=== PATIENT | female | born 1940 | race Caucasian/White ===

== ENCOUNTER → 2017-09-06 07:41 | Outpatient (CLI) | payer MEDICARE, OTHER ==
[~2017-09-06 07:41] MED LIST: JANUVIA50 MG PO; PAXIL40 MG PO; SYNTHROID50 MCG PO; TRICOR145 MG PO; TRULICITY0.75 MG/0. SC; ULTRAM50 MG PO
[2017-09-06 09:20] LABS: ALBUMIN 3.8 g/dL (3.4-5.0); ANION GAP 11.8 mmol/L (8-16); BILIRUBIN - TOTAL 0.5 mg/dL (0.2-1.3); CALCIUM 9.9 mg/dL (8.5-10.1); CREATININE - SERUM 1.8 mg/dL (0.6-1.3); POTASSIUM - SERUM 3.8 mmol/L (3.5-5.1); PROTEIN - SERUM 7.5 g/dL (6.4-8.2)
[2017-10-22 07:00] VITALS: BMI 25.8
== END | disposition home or self-care (01) ==
LOC: D.US 07:41
PROVIDERS: Family Medicine
DX: K81.9 Cholecystitis, unspecified (principal)

== ENCOUNTER 2017-10-22 05:18 | Day surgery (SDC) | payer MEDICARE, OTHER ==
[2017-10-21 11:30] LABS: BASOPHILS 0.4 % (0-2); EOSINOPHILS 2.9 % (0-7); HEMATOCRIT 39.6 % (36.0-48.0); HEMOGLOBIN 13.3 g/dL (12-16); IMMATURE GRANULOCYTES 0.2 % (0-5); LYMPHOCYTES 27.3 % (15-50); MCH 30.3 pg (26.0-34.0); MCHC 33.6 g/dL (31.0-37.0); MCV 90.2 fL (80.0-100.0); MEAN PLATELET VOLUME 9.9 fL (7.4-10.4); MONOCYTES 5.8 % (2-11); NEUTROPHILS 63.4 % (40-80); PLATELET COUNT 354 10x3/uL (130-400); RBC 4.39 10x6/uL (4.00-5.40); RDW 13.5 % (11.5-14.5); WBC 8.2 10x3/uL (4.8-10.8)
[2017-10-21 11:44] LABS: APTT 26.4 SECONDS (22.8-39.4); INR 0.97 (0.85-1.17); PROTIME 12.5 SECONDS (11.6-15.0)
[2017-10-21 11:47] LABS: ANION GAP 12.6 mmol/L (8-16); CALCIUM 9.2 mg/dL (8.5-10.1); CARBON DIOXIDE 26.3 mmol/L (21.0-32.0); CREATININE - SERUM 1.7 mg/dL (0.6-1.3); POTASSIUM - SERUM 3.9 mmol/L (3.5-5.1)
[~2017-10-22] VITALS: Ht 157.5 cm; Wt 64.0 kg
[~2017-10-22 05:18] MED LIST changes: -ULTRAM50 MG PO
[2017-10-22 07:00] VITALS: BP 127/62; Ht 157.5 cm; Wt 64.0 kg
[2017-10-22] MEDS ORDERED: ULTRAM50 MG PO (09:48)
--- NOTE | 2017-10-22 11:14 | NUR ---
1100 SERVED FULL LIQUID DIET. Thor VASQUES R.N.
--- NOTE | 2017-10-29 12:19 | OP ---
PATIENT NAME: JOSE A QUINTEROS MEDICAL RECORD: [id number] :44 LOCATION:D.OPS ADMISSION DATE: SURGEON: MAO SANTACRUZ MD DATE OF OPERATION: 10/22/2017 DATE OF OPERATION: 10/22/2017 PREOPERATIVE DIAGNOSES: 1. Gallstones. 2. Chronic kidney disease. 3. Diabetes mellitus. 4. Hyperlipidemia. POSTOPERATIVE DIAGNOSES: 1. Gallstones. 2. Chronic kidney disease. 3. Diabetes mellitus. 4. Hyperlipidemia. PROCEDURE: Laparoscopic cholecystectomy. SURGEON: Mao Santacruz MD REPORT OF PROCEDURE: The patient's abdomen was prepped and draped in sterile fashion. A cutdown was performed on the superior aspect of the umbilicus, 0 Vicryls were placed in the fascia bilaterally and the fascia was incised with 15-blade. I then bluntly entered the peritoneal cavity and placed a 12-mm Daryl port. Under direct visualization, a 5 mm trocar was placed in the epigastrium and two more 5-mm trocars were placed in the right subcostal region. The gallbladder was elevated and there were no sign of inflammatory changes. The cystic artery and duct were dissected free and these were clipped proximally and distally and ligated in standard fashion. The gallbladder was then taken off the liver bed using electrocautery and placed in the right upper quadrant. Any bleeding from the liver bed was then treated with electrocautery. At this point, the ports and insufflation were then removed and the gallbladder was taken out through the umbilicus. The umbilical fascia was closed with interrupted 0 Vicryls times 3. The wounds were irrigated out with normal saline and infused with 10 mL of 0.25% Marcaine with epinephrine. The skin incisions were all closed with subcutaneous 5-0 Monocryl and dressed appropriately. COMPLICATIONS: None. CONDITION: Stable. ANESTHESIA: General endotracheal and local. BLOOD LOSS: Minimal. TRANSINT:[id number] Voice Confirmation ID: [id number] DOCUMENT ID: [id number] OPERATIVE REPORT [id number] NELIJOSE A MAO CABRERA MD at 1219 CC: DUANE RIOS MD [id number] DICTATION DATE: 10/22/17 0951 [employer] REPAIRER: 10/22/17 1108 [facility] 10/22/17 [facility] [address] [place] [address]
== END 2017-10-22 12:20 | disposition home or self-care (01) ==
LOC: D.OPS 05:18 → D.PAN 08:20 → D.OPS 08:20
PROVIDERS: Anesthesiology
DX: K80.80 Other cholelithiasis without obstruction (principal); E11.22 Type 2 diabetes mellitus with diabetic chronic kidney disease; N18.9 Chronic kidney disease, unspecified; F17.200 Nicotine dependence, unspecified, uncomplicated; E03.9 Hypothyroidism, unspecified; E78.5 Hyperlipidemia, unspecified; J44.9 Chronic obstructive pulmonary disease, unspecified; Z01.812 Encounter for preprocedural laboratory examination

== ENCOUNTER 2018-03-06 19:21 | Emergency (ER) | payer MEDICARE, OTHER ==
[2017-10-22 07:00] VITALS: BMI 25.8
[~2018-03-06 19:21] MED LIST changes: +ULTRAM50 MG PO
== END 2018-03-06 21:36 | disposition home or self-care (01) ==
LOC: D.ER 19:21
DX: S63.502A Unspecified sprain of left wrist, initial encounter (principal); W01.0XXA Fall on same level from slipping, tripping and stumbling without subsequent striking against object, initial encounter; Y93.89 Activity, other specified; Y92.017 Garden or yard in single-family (private) house as the place of occurrence of the external cause; S61.411A Laceration without foreign body of right hand, initial encounter; E11.9 Type 2 diabetes mellitus without complications

== ENCOUNTER → 2018-05-28 12:48 | Outpatient (CLI) | payer MEDICARE, OTHER ==
[2017-10-22 07:00] VITALS: BMI 25.8
== END | disposition home or self-care (01) ==
LOC: D.CT 12:48
DX: R91.1 Solitary pulmonary nodule (principal)

== ENCOUNTER 2020-03-25 17:28 | Inpatient (IN) | payer MEDICARE, OTHER ==
[~2020-03-25] VITALS: Ht 157.5 cm; Wt 63.6 kg
--- NOTE | ~2020-03-25 | OP ---
PATIENT NAME: JOSE A QUINTEROS MEDICAL RECORD: [id number] :44 LOCATION:D.M3 D.1210 ADMISSION DATE:03/25/20 SURGEON: REGGIE LEWIS MD DATE OF OPERATION: 03/28/2020 PREOPERATIVE DIAGNOSIS: Left intertrochanteric hip fracture. POSTOPERATIVE DIAGNOSIS: Left intertrochanteric hip fracture. PROCEDURE: Cephalomedullary fixation (gamma nail of the left intertrochanteric hip fracture). SURGEON: Reggie Lewis MD ANESTHESIA: MELLISSA Antonio INTRAOPERATIVE COMPLICATIONS: None. SUMMARY OF PATHOLOGIC FINDINGS: The patient had a very minimally or nondisplaced intertrochanteric hip fracture of the left as seen under fluoroscopy. OPERATIVE SUMMARY IN DETAIL: After obtaining the appropriate preoperative orthopedic surgery consent as well as anesthetic consultation, evaluation and clearance, the patient was brought to the operating room and placed on the operating table in a supine position. After adequate general laryngeal mask airway was administered, the patient was placed on the fracture table, right leg was placed in the well leg hadley, left leg was placed in the traction boot. Under fluoroscopic guidance on AP and lateral planes, the patient was shown to have an anatomic realignment. Left hip was then prepped and draped in routine sterile fashion. Incision was made over the tip of the greater trochanter. Awl was then used to introduce a ball tip guidewire over which proximal reaming was performed. This was then followed by insertion of the gamma nail to the appropriate depth as seen on AP and lateral views. A guidewire was also placed in the appropriate position of the femoral head as seen on AP and lateral views. Appropriate reaming was then followed by insertion of the compression screw to the appropriate depth. A derotational screw was then placed and it was checked to make sure that compression was possible and rotation was not. Compression was then placed across the fracture. This was followed by placement of distal interlocking screw again under fluoroscopic visualization. Having completed this, final radiographs were taken and submitted for radiologist review. Wounds were irrigated and closed by Keagan Hernandez and closed with #1 Vicryl, 2-0 Vicryl and skin kemi. Sterile dressings were applied. The patient was then awakened, taken to recovery room in stable condition. All final needle and sponge counts were correct. TRANSINT:[id number] Voice Confirmation ID: [id number] DOCUMENT ID: [id number] OPERATIVE REPORT [id number] JOSE A QUINTEROS MD, REGGIE AGUILAR CC: [id number] DICTATION DATE: 03/31/20837 CONSULTING MANAGER: 03/31/20 1506 DIS IN 03/31/20 [facility] [address] [place] [id number]
--- NOTE | 2020-03-25 19:05 | NUR ---
REPORT TO CADE CHOWDHURY
[2020-03-25 20:01] LABS: BASOPHILS 0.2 % (0-2); EOSINOPHILS 1.6 % (0-7); HEMATOCRIT 44.3 % (36.0-48.0); HEMOGLOBIN 14.2 g/dL (12-16); IMMATURE GRANULOCYTES 0.5 % (0-5); LYMPHOCYTES 11.3 % (15-50); MCH 30.4 pg (26.0-34.0); MCHC 32.1 g/dL (31.0-37.0); MCV 94.9 fL (80.0-100.0); MEAN PLATELET VOLUME 10.5 fL (7.4-10.4); MONOCYTES 4.8 % (2-11); NEUTROPHILS 81.6 % (40-80); PLATELET COUNT 309 10x3/uL (130-400); RBC 4.67 10x6/uL (4.00-5.40); RDW 13.6 % (11.5-14.5)
[2020-03-25 20:06] LABS: ANION GAP 12.6 mmol/L (8-16); CALCIUM 9.4 mg/dL (8.5-10.1); CARBON DIOXIDE 28.1 mmol/L (21.0-32.0); POTASSIUM - SERUM 3.7 mmol/L (3.5-5.1)
[2020-03-25 20:12] LABS: ALBUMIN 4.2 g/dL (3.4-5.0); BILIRUBIN - TOTAL 0.29 mg/dL (0.2-1.3); PROTEIN - SERUM 7.4 g/dL (6.4-8.2)
--- NOTE | 2020-03-25 20:15 | NUR ---
URINE SENT TO LAB AT THIS TIME.
[2020-03-25 20:26] LABS: APTT 25.2 SECONDS (22.8-39.4); INR 0.98 (0.85-1.17)
[2020-03-25 20:39] LABS: BILIRUBIN NEGATIVE (NEGATIVE); GLUCOSE 50 mg/dL (NEGATIVE); KETONE NEGATIVE (NEGATIVE); NITRITE NEGATIVE (NEGATIVE); SPECIFIC GRAVITY 1.025 (1.005-1.020); UROBILINOGEN NORMAL (NORMAL)
[2020-03-25 21:26] VITALS: BP 109/48
--- NOTE | 2020-03-25 21:26 | NUR ---
RECEIVED PT TO FLOOR FROM ER VIA STRETCHER. PT ALERT & ORIENTED. RATES HIP PAIN 4/10 LYING STILL, PAIN INCREASES WITH MOVEMENT. VITALS SIGNS STABLE. ABRASIONS ON LEFT ELBOW AND LEFT KNEE. CLEANED WITH SALINE AND APPLIED BANDAID TO EACH. EXPLAINED BENEFIT OF SCD'S AND PUT THEM ON. PROVIDED INCENTIVE SPIROMETER AND INSTRUCTED ON USE. IV FLUIDS RESUMED. COMPLETE ASSESSMENT PER FLOW-SHEET. REVIEWED HOME MEDS AND HISTORY. NO OTHER NEEDS. WILL REASSESS AND CONTINUE TO MONITOR. BED LOW. CALL LIGHT IN REACH.
[2020-03-25] MEDS ORDERED: VITAMIN D1000 UNI1 PO (22:02)
[2020-03-26] VITALS (7 sets, daily range): BP systolic 111–133; BP diastolic 40–63; Ht 157.5 cm; Wt 63.6 kg
--- NOTE | 2020-03-26 | NUR ---
PT VOIDED 275 MLS ON BEDPAN. PT ALSO VOIDED UNKNOWN AMOUNT IN ER AND HAD IN/OUT CATH FOR URINE SPECIMEN. PT C/O LEFT HIP PAIN 03/27. GAVE MORPHINE 2MG AND ZOFRAN 4MG IV PUSH. VITALS SIGNS STABLE. PERFORMED EKG AND PUT ON CHART. LEFT AC IV KEEP BEEPING "OCCLUDED". SITED 22G IV TO LEFT FOREARM 1ST ATTEMPT. LEFT 20G IV IN AC AND SALINE LOCKED. REMINDED PT OF MIDNIGHT NPO STATUS. NO OTHER NEEDS. WILL REASSESS AND CONTINUE TO MONITOR.
--- NOTE | 2020-03-26 04:00 | NUR ---
PT VOIED 200 CC'S IN BEDPAN. C/O PAIN 05/27. GAVE MORPHINE 2MG IV PUSH. PUT PT ON 2L/NC TO KEEP SATS ABOVE 92%. HELPED PT TO REPOSITION FOR COMFORT. NO OTHER NEEDS. WILL CONTINUE TO MONITOR.
[2020-03-26 06:18] LABS: HEMATOCRIT 36.7 % (36.0-48.0); LYMPHOCYTES 29.5 % (15-50); MCH 30.3 pg (26.0-34.0); MCHC 32.7 g/dL (31.0-37.0); MCV 92.7 fL (80.0-100.0); MEAN PLATELET VOLUME 10.5 fL (7.4-10.4); NEUTROPHILS 64.6 % (40-80); PLATELET COUNT 254 10x3/uL (130-400); RBC 3.96 10x6/uL (4.00-5.40); RDW 13.2 % (11.5-14.5); WBC 7.9 10x3/uL (4.8-10.8)
[2020-03-26 06:20] LABS: ANION GAP 13.8 mmol/L (8-16); CALCIUM 8.3 mg/dL (8.5-10.1); CARBON DIOXIDE 24.1 mmol/L (21.0-32.0); PHOSPHOROUS 3.8 mg/dL (2.5-4.9); POTASSIUM - SERUM 3.9 mmol/L (3.5-5.1)
--- NOTE | 2020-03-26 08:27 | NUR ---
PT ALERT X 4. BREATH SOUNDS CLEAR BILAT, 2L O2 PER NC. IV TO LEFT AC, SALINE LOCKED. IV TO LEFT FOREARM, PATENT, DRESSING CDI. DRESSING TO LEFT ELBOW AND LEFT KNEE CDI. PT REPORTING PAIN OF 5/10, WILL CONTINUE TO MONITOR. SCD'S IN USE. BED LOW, CALL LIGHT IN REACH. NO OTHER NEEDS AT THIS TIME.
--- NOTE | 2020-03-26 19:26 | NUR ---
PATIENT RESTING IN BED WITH NO S/S OF DISTRESS. BROUGHT PATIENT COFFEE PER HER REQUEST. VSS. PATIENT DENIES OTHER NEEDS AT THIS TIME. BED IN LOWEST POSITION AND CALL LIGHT WITHIN REACH. ENCOURAGED THE PATIENT TO CALL IF SHE HAS NEEDS. WILL CONTINUE TO MONITOR.
--- NOTE | 2020-03-26 22:58 | NUR ---
ASSISTED PATIENT ON AND OFF BEDPAN TO VOID. ALSO ASSISTED PATIENT REPOSITIONING IN BED FOR COMFORT. PATIENT DENIES OTHER NEEDS AT THIS TIME.
[2020-03-27 04:33] VITALS: BP 130/44
[2020-03-27 07:09] LABS: HEMATOCRIT 35.3 % (36.0-48.0); HEMOGLOBIN 11.4 g/dL (12-16); LYMPHOCYTES 30.9 % (15-50); MCH 30.1 pg (26.0-34.0); MCHC 32.3 g/dL (31.0-37.0); MCV 93.1 fL (80.0-100.0); MEAN PLATELET VOLUME 9.9 fL (7.4-10.4); NEUTROPHILS 62.1 % (40-80); PLATELET COUNT 208 10x3/uL (130-400); RBC 3.79 10x6/uL (4.00-5.40); RDW 12.5 % (11.5-14.5); WBC 6.7 10x3/uL (4.8-10.8)
[2020-03-27 07:46] LABS: ANION GAP 12.4 mmol/L (8-16); CALCIUM 8.1 mg/dL (8.5-10.1); CARBON DIOXIDE 24.2 mmol/L (21.0-32.0); MAGNESIUM - SERUM 1.8 mg/dL (1.8-2.4); PHOSPHOROUS 3.4 mg/dL (2.5-4.9); POTASSIUM - SERUM 3.6 mmol/L (3.5-5.1)
[2020-03-27 09:13] VITALS: BP 138/43
[2020-03-27 12:23] VITALS: BP 126/39
[2020-03-27 17:55] VITALS: BP 131/44
--- NOTE | 2020-03-27 19:30 | NUR ---
LUIS ANTONIO RN ASSISTED PATIENT ON AND OFF BEDPAN. PATIENT DENIES OTHER NEEDS AT THIS TIME. VSS. BED IN LOWEST POSITION AND CALL LIGHT WITHIN REACH. ENCOURAGED THE PATIENT TO CALL IF SHE HAS NEEDS. WILL CONTINUE TO MONITOR.
[2020-03-27 19:34] VITALS: BP 150/51
--- NOTE | 2020-03-27 19:53 | NUR ---
CONSENTS SIGNED AND IN CHART
--- NOTE | 2020-03-27 20:47 | NUR ---
ASSISTED PATIENT ON AND OFF BEDPAN. PATIENT VOIDED.
--- NOTE | 2020-03-27 22:30 | NUR ---
COMPLETED CHG BATH
[2020-03-27 23:38] VITALS: BP 112/63
[2020-03-28] VITALS (7 sets, daily range): BP systolic 121–150; BP diastolic 46–92
--- NOTE | 2020-03-28 02:24 | NUR ---
ASSISTED PATIENT ON AND OFF BEDPAN. PATIENT DENIES OTHER NEEDS AT THIS TIME. BED IN LOWEST POSITION AND CALL LIGHT WITHIN REACH. ENCOURAGED THE PATIENT TO CALL IF SHE HAS NEEDS. WILL CONTINUE TO MONITOR.
[2020-03-28 06:30] LABS: ANION GAP 11.6 mmol/L (8-16); CARBON DIOXIDE 24.2 mmol/L (21.0-32.0); CREATININE - SERUM 1.6 mg/dL (0.6-1.3); MAGNESIUM - SERUM 1.8 mg/dL (1.8-2.4); POTASSIUM - SERUM 3.8 mmol/L (3.5-5.1)
[2020-03-28 06:31] LABS: PHOSPHOROUS 2.5 mg/dL (2.5-4.9)
[2020-03-28 07:12] LABS: HEMATOCRIT 32.1 % (36.0-48.0); HEMOGLOBIN 10.5 g/dL (12-16); LYMPHOCYTES 25.6 % (15-50); MCH 29.8 pg (26.0-34.0); MCHC 32.7 g/dL (31.0-37.0); MCV 91.2 fL (80.0-100.0); MEAN PLATELET VOLUME 10.7 fL (7.4-10.4); NEUTROPHILS 65.8 % (40-80); PLATELET COUNT 208 10x3/uL (130-400); RBC 3.52 10x6/uL (4.00-5.40); RDW 12.3 % (11.5-14.5); WBC 6.8 10x3/uL (4.8-10.8)
--- NOTE | 2020-03-28 07:34 | NUR ---
AWAKE AND ALERT. ORIENTED X3. NO C/O AT THIS TIME. LUNGS ARE CLEAR BUT DIMINISHED THROUGHOUT WITH FAINT CRACKLES NOTED TO RIGHT LOWER LOBE, NO COUGH NOTED. SKIN IS INTACT WITHOUT REDNESS EXCEPT ABRASION TO LEFT KNEE AND ELBOW. WILL MONITOR. IV TO LEFT WRIST IS PATENT WITHOUT REDNESS AT INSERTION SITE AND SL TO RIGHT FA WITHOUT REDNESS. DENIES NEEDS.
--- NOTE | 2020-03-28 08:01 | NUR ---
USED BED SALDANA. VOIDED 100CC CLEAR YELLOW URINE. RICHARD CARE PER STAFF.
--- NOTE | 2020-03-28 08:30 | NUR ---
REQUESTED AND GIVEN 2MG MORPHINE SLOW IVP FOR C/O LEFT HIP PAIN LEVEL 6. WILL MONITOR.
--- NOTE | 2020-03-28 09:27 | NUR ---
PUREWICK PLACED. PATIENT INSTRUCTED IN USE OF SAME. ALL QUESTIONS ANSWERED.
--- NOTE | 2020-03-28 11:17 | NUR ---
OFF UNIT VIA BED TO SURGERY.
--- NOTE | 2020-03-28 11:53 | MORECARE ---
CASE MANAGEMENT DISCHARGE SUMMARY PATIENT: JOSE A QUINTEROS UNIT: [id number] ADM DATE: 03/25/20 AGE: 79 : 42 SEX: F ROOM/BED: D.1210 AUTHOR: LATASHA WHIPPLE PHYSICIAN: REFERRING PHYSICIAN: LASHAWN FITZGERALD MD DATE OF SERVICE: 03/28/20 Discharge Plan Patient Name: JOSE A QUINTEROS Facility: [facility]:[place] : 1940 Planned Disposition: Anticipated Discharge Date: Discharge Date: Expected LOS: Initial Reviewer: [email or web address] Initial Review Date: 03/25/2020 Generated: 03/28/20 12:53 pm Patient Name: JOSE A QUINTEROS Page [phone] at 1153 All edits/amendments must be made on the electronic document DICTATION DATE: 03/28/20 1153 BOOK SALESMAN: THERON 03/28/20 1153 RPT#: [id number] DC DATE: STATUS: ADM IN [facility] [address] [place] [address] END OF REPORT
--- NOTE | 2020-03-28 12:02 | MORECARE ---
CASE MANAGEMENT DISCHARGE SUMMARY PATIENT: JOSE A QUINTEROS UNIT: [id number] ADM DATE: 03/25/20 AGE: 79 : 42 SEX: F ROOM/BED: D.1210 AUTHOR: LATASHA WHIPPLE PHYSICIAN: REFERRING PHYSICIAN: LASHAWN FITZGERALD MD DATE OF SERVICE: 03/28/20 Discharge Plan Patient Name: JOSE A QUINTEROS [facility] [facility] 1940 Planned Disposition: Anticipated Discharge Date: Discharge Date: Expected LOS: Initial Reviewer: [email or web address] Initial Review Date: 03/25/2020 Generated: 03/28/20 1:01 pm DCPIA - Discharge Planning Initial Assessment Updated by [email or web address]: Nikole James on 03/28/20 11:53 am * Is the patient Alert and Oriented? Yes * How many steps to enter\exit or inside your home? * PCP Dr. Mackey * Pharmacy [facility] * Preadmission Environment Home with Family * ADLs Independent * Equipment Shower Chair Walker * Other Equipment Scooter (no battery) * List name and contact numbers for known caregivers / representatives who currently or will assist patient after discharge: Jeancarlos Laurent [phone] * Verbal permission to speak to the caregivers and representatives has been obtained from the patient. Yes * Community resources currently utilized None * Additional services required to return to the preadmission environment? Yes * Can the patient safely return to the preadmission environment? Yes * Has this patient been hospitalized within the prior 30 days at any hospital? No Last DP export: 03/28/20 10:53 a Patient Name: JOSE A QUINTEROS Page [phone] at 1202 All edits/amendments must be made on the electronic document DICTATION DATE: 03/28/20 1201 CUSTOMER ENGINEER: THERON 03/28/20 1201 RPT#: [id number] DC DATE: STATUS: ADM IN [facility] [address] [place] [address] END OF REPORT
--- NOTE | 2020-03-28 12:16 | MORECARE ---
CASE MANAGEMENT DISCHARGE SUMMARY PATIENT: JOSE A QUINTEROS UNIT: [id number] ADM DATE: 03/25/20 AGE: 79 : 42 SEX: F ROOM/BED: D.1210 AUTHOR: SARABJIT,DOC PHYSICIAN: REFERRING PHYSICIAN: LASHAWN FITZGERALD MD DATE OF SERVICE: 03/28/20 Discharge Plan Patient Name: JOSE A QUINTEROS Facility: [facility]:[place] : 1940 Planned Disposition: Anticipated Discharge Date: Discharge Date: Expected LOS: Initial Reviewer: [email or web address] Initial Review Date: 03/25/2020 Generated: 03/28/20 1:15 pm Comments DCP- Discharge Planning Updated by [email or web address]: Nikole James on 03/28/20 11:[address] DC Needs: Determine OP vs HHS post surgery. Needs BSC. CM met with patient regarding DC needs/plans. Patient is A/O X3.Patient agrees to cM interview. PCP: Dr. Mackey. Pharmacy: [facility]. DME: Walker, shower chair, Scooter (no battery). She has her glasses on this morning. Patient lives independently with her son, g-dtr and g-g-dtr. Patient gives permission to speak with her family, if needed. Denies use of community resources. She is unsure of DC plan prior to surgery. Emergency contact: Jeancarlos Laurent (son) [phone]. CM will meet again after PT ambulates her on 03/29.Transportation home will be her son. Patient will require a BSC for home use. Denies being hospitalized within past 30 days. Patient has lived in [place] for past 5 years. DCPIA - Discharge Planning Initial Assessment Updated by [email or web address]: Nikole James on 03/28/20 11:53 am * Is the patient Alert and Oriented? Yes * How many steps to enter\exit or inside your home? * PCP Dr. Mackey * Pharmacy [facility], [facility] * Preadmission Environment Home with Family * ADLs Independent * Equipment Shower Chair Walker * Other Equipment Scooter (no battery) * List name and contact numbers for known caregivers / representatives who currently or will assist patient after discharge: Jeancarlos Laurent [phone] * Verbal permission to speak to the caregivers and representatives has been obtained from the patient. Yes * Community resources currently utilized None * Additional services required to return to the preadmission environment? Yes * Can the patient safely return to the preadmission environment? Yes * Has this patient been hospitalized within the prior 30 days at any hospital? No Last DP export: 03/28/20 11:02 a Patient Name: JOSE A QUINTEROS Page [phone] at 1216 All edits/amendments must be made on the electronic document DICTATION DATE: 03/28/20 1215 BEAN ROASTER: THERON 03/28/20 1215 RPT#: [id number] DC DATE: STATUS: ADM IN [facility] [address] [place] [address] END OF REPORT
--- NOTE | 2020-03-28 12:23 | MORECARE ---
CASE MANAGEMENT DISCHARGE SUMMARY PATIENT: JOSE A QUINTEROS UNIT: [id number] ADM DATE: 03/25/20 AGE: 79 : 42 SEX: F ROOM/BED: D.1210 AUTHOR: SARABJIT,DOC PHYSICIAN: REFERRING PHYSICIAN: LASHAWN FITZGERALD MD DATE OF SERVICE: 03/28/20 Discharge Plan Patient Name: JOSE A QUINTEROS Facility: [facility]:[place] : 1940 Planned Disposition: Anticipated Discharge Date: Discharge Date: Expected LOS: Initial Reviewer: [email or web address] Initial Review Date: 03/25/2020 Generated: 03/28/20 1:23 pm Comments DCP- Discharge Planning Updated by [email or web address]: Nikole James on 03/28/20 11:[address] DC Needs: Determine OP vs HHS post surgery. Needs BSC. CM met with patient regarding DC needs/plans. Patient is A/O X3.Patient agrees to CM interview. PCP: Dr. Mackey. Pharmacy: [facility]. DME: Walker, shower chair, Scooter (no battery). She has her glasses on this morning. Patient lives independently with her son, g-dtr and g-g-dtr. Patient gives permission to speak with her family, if needed. Denies use of community resources. She is unsure of DC plan prior to surgery. Emergency contact: Jeancarlos Laurent (son) [phone]. CM will meet again after PT ambulates her on 03/29. Transportation home will be her son. Patient will require a BSC for home use. Denies being hospitalized within past 30 days. Patient has lived in [place] for past 5 years. DCPIA - Discharge Planning Initial Assessment Updated by [email or web address]: Nikole James on 03/28/20 11:53 am * Is the patient Alert and Oriented? Yes * How many steps to enter\exit or inside your home? * PCP Dr. Mackey * Pharmacy [facility] * Preadmission Environment Home with Family * ADLs Independent * Equipment Shower Chair Walker * Other Equipment Scooter (no battery) * List name and contact numbers for known caregivers / representatives who currently or will assist patient after discharge: Jeancarlos Laurent [phone] * Verbal permission to speak to the caregivers and representatives has been obtained from the patient. Yes * Community resources currently utilized None * Additional services required to return to the preadmission environment? Yes * Can the patient safely return to the preadmission environment? Yes * Has this patient been hospitalized within the prior 30 days at any hospital? No Last DP export: 03/28/20 11:16 a Patient Name: JOSE A QUINTEROS Page [phone] at 1223 All edits/amendments must be made on the electronic document DICTATION DATE: 03/28/20 1223 TRANSPORT OPERATIONS INSPECTOR: THERON 03/28/20 1223 RPT#: [id number] DC DATE: STATUS: ADM IN [facility] [address] [place] [address] END OF REPORT
--- NOTE | 2020-03-28 13:39 | NUR ---
Nutrition Follow-up: NPO for gamma nail today. WT: 139# (03/26) Last BM: 03/24 per chart Labs noted: Glu 107, Ca 8.0 Meds noted: vitamin D, Januvia, NS @ 75, Pepcid, electrolyte protocol -Rec resume diabetic diet when medically feasible. -Monitor wt; noted daily wts ordered. -RD following.
--- NOTE | 2020-03-28 14:00 | NUR ---
RETURNED FROM SURGERY. DRESSING TO LEFT HIP UPPER INCISION SATURATED WITH FRESH BLOOD. REENFORCED AT THIS TIME. WILL MONITOR. REQUESTED AND GIVEN 2MG MORPHINE SLOW IVP FOR C/O LEFT HIP PAIN LEVEL 6. WILL MONITOR. REPOSITIONED IN BED FOR COMFORT. PUREWICK PLACED AT THIS TIME.
--- NOTE | 2020-03-28 19:12 | NUR ---
ATE ALL OF SUPPER. CONTINUES CONFUSED. WILL YELL OUT AT TIMES. ATTEMPTS TO REORIENT WITHOUT SUCCESS BUT WILL CALM WITH CONVERSATIONS. DENIES NEEDS.
--- NOTE | 2020-03-28 19:21 | NUR ---
PATIENT RESTING IN BED WITH NO S/S OF DISTRESS. PATIENT STATES 9/10 PAIN. PATIENT DENIES OTHER NEEDS AT THIS TIME. WILL ADMINISTER PAIN MEDS PER ORDERS. BED IN LOWEST POSITION AND CALL LIGHT WITHIN REACH. ENCOURAGED THE PATIENT TO CALL IF SHE HAS NEEDS. WILL CONTINUE TO MONITOR.
[2020-03-29 00:02] VITALS: BP 126/55
[2020-03-29 03:36] VITALS: BP 124/55
[2020-03-29 06:57] LABS: CALCIUM 7.9 mg/dL (8.5-10.1); CREATININE - SERUM 1.9 mg/dL (0.6-1.3); PHOSPHOROUS 2.5 mg/dL (2.5-4.9)
[2020-03-29 07:15] VITALS: BP 124/47
[2020-03-29 07:20] LABS: HEMATOCRIT 30.4 % (36.0-48.0); HEMOGLOBIN 9.9 g/dL (12-16); LYMPHOCYTES 18.7 % (15-50); MCH 29.6 pg (26.0-34.0); MCHC 32.6 g/dL (31.0-37.0); MCV 90.7 fL (80.0-100.0); MEAN PLATELET VOLUME 10.4 fL (7.4-10.4); NEUTROPHILS 72.1 % (40-80); PLATELET COUNT 209 10x3/uL (130-400); RBC 3.35 10x6/uL (4.00-5.40); RDW 12.3 % (11.5-14.5)
--- NOTE | 2020-03-29 07:42 | NUR ---
AWAKE AND ALERT. ORIENTED X3. SOME SLIGHT CONFUSION AT TIMES. LUNGS ARE CLEAR BILATERALLY, NO COUGH NOTED. SKIN IS INTACT WITHOUT REDNESS EXCEPT 3 SMALL INCISIONS TO LEFT HIP WHICH HAVE DRY INTact DRESSINGS IN PLACE. IV TO RIGHT FOREARM IS PATENT WITHOUT REDNESS AT INSERTION SITE. BREAKFAST SERVED IN ROOM. PUREWICK IN PLACE THIS AM WITH CLEAR YELLOW URINE.
--- NOTE | 2020-03-29 10:01 | NUR ---
ATE ALMOST ALL OF BREAKFAST. TOOK AM MEDS WITHOUT DIFFICULTY. UP TO BSC WITH PT AND RW. VOIDED WITHOUT DIFFICULTY. SKIN CARE PER STAFF.
--- NOTE | 2020-03-29 10:42 | NUR ---
REMAINS UP IN CHAIR AT BEDSIDE. C/O PAIN LEVEL 7 TO LEFT HIP. REQUESTED AND GIVEN ONE HYDROCODONE PO FOR SAME. WILL MONITOR.
[2020-03-29 12:07] VITALS: BP 155/52
--- NOTE | 2020-03-29 12:30 | NUR ---
ATE MOST OF LUNCH. DENIES NEEDS.
--- NOTE | 2020-03-29 15:00 | NUR ---
RESTING QUIETLY IN BED. DENIES NEEDS.
[2020-03-29 16:26] VITALS: BP 142/60
--- NOTE | 2020-03-29 16:54 | MORECARE ---
CASE MANAGEMENT DISCHARGE SUMMARY PATIENT: JOSE A QUINTEROS UNIT: [id number] ADM DATE: 03/25/20 AGE: 79 : 42 SEX: F ROOM/BED: D.1210 AUTHOR: SARABJITDOC PHYSICIAN: REFERRING PHYSICIAN: LASHAWN FITZGERALD MD DATE OF SERVICE: 03/29/20 Discharge Plan Patient Name: JOSE A QUINTEROS Facility: [facility]:[place] : 1940 Planned Disposition: Anticipated Discharge Date: 03/31/20 Discharge Date: Expected LOS: 6 Initial Reviewer: [email or web address] Initial Review Date: 03/25/2020 Generated: 03/29/20 5:54 pm DCP- Discharge Planning Updated by [email or web address]: Nikole James on 03/28/20 11:[address] DC Needs: Determine OP vs HHS post surgery. Needs BSC. CM met with patient regarding DC needs/plans. Patient is A/O X3.Patient agrees to CM interview. PCP: Dr. Mackey. Pharmacy: [facility]. DME: Walker, shower chair, Scooter (no battery). She has her glasses on this morning. Patient lives independently with her son, g-dtr and g-g-dtr. Patient gives permission to speak with her family, if needed. Denies use of community resources. She is unsure of DC plan prior to surgery. Emergency contact: Jeancarlos Laurent (son) [phone]. CM will meet again after PT ambulates her on 03/29. Transportation home will be her son. Patient will require a BSC for home use. Denies being hospitalized within past 30 days. Patient has lived in [place] for past 5 years. DCPIA - Discharge Planning Initial Assessment Updated by [email or web address]: Nikole James on 03/28/20 11:53 am * Is the patient Alert and Oriented? Yes * How many steps to enter\exit or inside your home? * PCP Dr. Mackey * Pharmacy [facility] * Preadmission Environment Home with Family * ADLs Independent * Equipment Shower Chair Walker * Other Equipment Scooter (no battery) * List name and contact numbers for known caregivers / representatives who currently or will assist patient after discharge: Jeancarlos Laurent [phone] * Verbal permission to speak to the caregivers and representatives has been obtained from the patient. Yes * Community resources currently utilized None * Additional services required to return to the preadmission environment? Yes * Can the patient safely return to the preadmission environment? Yes * Has this patient been hospitalized within the prior 30 days at any hospital? No Last DP export: 03/28/20 11:23 a Patient Name: JOSE A QUINTEROS Page [id number] at 1654 All edits/amendments must be made on the electronic document DICTATION DATE: 03/29/201653 IMPROVEMENT SPECIALIST: THERON 03/29/201653 RPT#: [id number] DC DATE: STATUS: ADM IN [facility] [address] [place] [address] END OF REPORT
--- NOTE | 2020-03-29 17:38 | MORECARE ---
CASE MANAGEMENT DISCHARGE SUMMARY PATIENT: JOSE A QUINTEROS UNIT: [id number] ADM DATE: 03/25/20 AGE: 79 : 42 SEX: F ROOM/BED: D.1210 AUTHOR: SARABJIT,DOC PHYSICIAN: REFERRING PHYSICIAN: LASHAWN FITZGERALD MD DATE OF SERVICE: 03/29/20 Discharge Plan Patient Name: JOSE A QUINTEROS Facility: [facility]:[place] : 1940 Planned Disposition: Anticipated Discharge Date: 03/31/20 Discharge Date: Expected LOS: 6 Initial Reviewer: [email or web address] Initial Review Date: 03/25/2020 Generated: 03/29/20 6:38 pm Comments DCP- Discharge Planning Updated by [email or web address]: Nikole James on 03/29/20 4:[address] Patient is more alert today, and in agreement for [facility] to come to her home. CM faxed required information to [phone]. Patient and son are both unsure of HHS or SNF. She has family coming from out of state to visit her and wants to be available for that. DCP- Discharge Planning Updated by [email or web address]: Nikole James on 03/28/20 11:[address] DC Needs: Determine OP vs HHS post surgery. Needs BSC. CM met with patient regarding DC needs/plans. Patient is A/O X3.Patient agrees to CM interview. PCP: Dr. Mackey. Pharmacy: [facility]. DME: Walker, shower chair, Scooter (no battery). She has her glasses on this morning. Patient lives independently with her son, g-dtr and g-g-dtr. Patient gives permission to speak with her family, if needed. Denies use of community resources. She is unsure of DC plan prior to surgery. Emergency contact: Jeancarlos Lauernt (son) [phone]. CM will meet again after PT ambulates her on 03/29. Transportation home will be her son. Patient will require a BSC for home use. Denies being hospitalized within past 30 days. Patient has lived in [place] for past 5 years. DCPIA - Discharge Planning Initial Assessment Updated by [email or web address]: Nikole James on 03/28/20 11:53 am * Is the patient Alert and Oriented? Yes * How many steps to enter\exit or inside your home? * PCP Dr. Mackey * Pharmacy [facility] * Preadmission Environment Home with Family * ADLs Independent * Equipment Shower Chair Walker * Other Equipment Scooter (no battery) * List name and contact numbers for known caregivers / representatives who currently or will assist patient after discharge: Jeancarlos Laurent [phone] * Verbal permission to speak to the caregivers and representatives has been obtained from the patient. Yes * Community resources currently utilized None * Additional services required to return to the preadmission environment? Yes * Can the patient safely return to the preadmission environment? Yes * Has this patient been hospitalized within the prior 30 days at any hospital? No Last DP export: 03/29/20 3:54 p Patient Name: JOSE A QUINTEROS Page [id number] at 1738 All edits/amendments must be made on the electronic document DICTATION DATE: 03/29/201737 CUTTING TOOL SHARPENER: THERON 03/29/201737 RPT#: [id number] DC DATE: STATUS: ADM IN [facility] [address] [place] [address] END OF REPORT
--- NOTE | 2020-03-29 18:09 | MORECARE ---
CASE MANAGEMENT DISCHARGE SUMMARY PATIENT: JOSE A QUINTEROS UNIT: [id number] ADM DATE: 03/25/20 AGE: 79 : 42 SEX: F ROOM/BED: D.1210 AUTHOR: SARABJIT,DOC PHYSICIAN: REFERRING PHYSICIAN: LASHAWN FITZGERALD MD DATE OF SERVICE: 03/29/20 Discharge Plan Patient Name: JOSE A QUINTEROS Facility: [facility]:[place] : 1940 Planned Disposition: Home with Home Health Anticipated Discharge Date: 03/31/20 Discharge Date: Expected LOS: 6 Initial Reviewer: [email or web address] Initial Review Date: 03/25/2020 Generated: 03/29/20 7:09 pm Comments DCP- Discharge Planning Updated by [email or web address]: Nikole James on 03/29/20 5:[address] DC plan: Home with [facility]. Faxed information to [place] [facility]. Patient is more alert today, and in agreement for [place] [facility] to come to her home. CM faxed required information to [phone]. Patient and son are both unsure of HHS or SNF. She has family coming from out of state to visit her and wants to be available for that. DCP- Discharge Planning Updated by [id number]: Nikole James on 03/28/20 11:[address] DC Needs: Determine OP vs HHS post surgery. Needs BSC. CM met with patient regarding DC needs/plans. Patient is A/O X3.Patient agrees to CM interview. PCP: Dr. Mackey. [facility]. DME: Walker, shower chair, Scooter (no battery). She has her glasses on this morning. Patient lives independently with her son, g-dtr and g-g-dtr. Patient gives permission to speak with her family, if needed. Denies use of community resources. She is unsure of DC plan prior to surgery. Emergency contact: Jeancarlos Laurent (son) [phone]. CM will meet again after PT ambulates her on 03/29. Transportation home will be her son. Patient will require a BSC for home use. Denies being hospitalized within past 30 days. Patient has lived in [place] for past 5 years. DCPIA - Discharge Planning Initial Assessment Updated by [email or web address]: Nikoleliam James on 03/28/20 11:53 am * Is the patient Alert and Oriented? Yes * How many steps to enter\exit or inside your home? * PCP Dr. Mackey * Pharmacy [facility] [place] * Preadmission Environment Home with Family * ADLs Independent * Equipment Shower Chair Walker * Other Equipment Scooter (no battery) * List name and contact numbers for known caregivers / representatives who currently or will assist patient after discharge: Jeancarlos Laurent [phone] * Verbal permission to speak to the caregivers and representatives has been obtained from the patient. Yes * Community resources currently utilized None * Additional services required to return to the preadmission environment? Yes * Can the patient safely return to the preadmission environment? Yes * Has this patient been hospitalized within the prior 30 days at any hospital? No External Providers External Provider: [facility] Next Contact Date: Service Request Date: Service Type: Resolution: Reviewer: Comments: Coverage Notice Reviewer: [email or web address] - Nikoleliam James Notice Issued Date-Time: 03/29/2020 18:07 Notice Type: Patient Choice Letter Notice Delivered To: Patient Relationship to Patient: Self Fluid Dynamicist Name: Jose A Quinteros Delivery Method: HAND - Hand Delivered Rachel Days: Prior Verbal Notification: Recipient Understood Notice: Yes Recipient Signature: Yes Med Rec Note Co-signed by Attending: Coverage Notice Comment: Patient choice for [facility] signed. Original given to patient and one placed on chart. Last DP export: 03/29/20 4:38 p Patient Name: JOSE A QUINTEROS Page [phone] at 1809 All edits/amendments must be made on the electronic document DICTATION DATE: 03/29/201808 DRAG DOWN: THERON 03/29/201808 RPT#: [id number] DC DATE: STATUS: ADM IN [facility] [address] [place] [address] END OF REPORT
--- NOTE | 2020-03-29 18:29 | NUR ---
ATE MOST OF SUPPER. UP TO BSC WITH ONE PERSON MIN ASSIST. HAD ONE SMALL DARK TURD AND VOIDED ABOUT 100CC CLEAR YELLOW URINE. DENIES NEEDS. REPOSITIONED IN BED FOR COMFORT.
[2020-03-29 20:00] VITALS: BP 163/59
--- NOTE | 2020-03-29 22:44 | NUR ---
PT CONFUSED ATTEMPTING TO STAND AND WALK UNASSISTED. BED AND CHAIR ALARMS IN USE. PT PULLED IV, NO IV MEDS ON JAN AT THIS TIME. RESTING IN BED AT THIS TIME. PT BEGINNING TO REMEMBER SOMETHINGS AND THEN BECOMES CONFUSED AGAIN. CALL LIGHT IN REACH. WILL CONTINUE TO OBSERVE.
[2020-03-30] VITALS: BP 144/54
[2020-03-30 06:28] LABS: BASOPHILS 0.3 % (0-2); EOSINOPHILS 4.3 % (0-7); HEMATOCRIT 30.1 % (36.0-48.0); HEMOGLOBIN 9.6 g/dL (12-16); IMMATURE GRANULOCYTES 0.3 % (0-5); LYMPHOCYTES 17.3 % (15-50); MCH 29.4 pg (26.0-34.0); MCHC 31.9 g/dL (31.0-37.0); MEAN PLATELET VOLUME 10.3 fL (7.4-10.4); NEUTROPHILS 66.8 % (40-80); PLATELET COUNT 249 10x3/uL (130-400); RBC 3.27 10x6/uL (4.00-5.40); WBC 7.4 10x3/uL (4.8-10.8)
[2020-03-30 06:52] LABS: ANION GAP 10.9 mmol/L (8-16); CALCIUM 8.3 mg/dL (8.5-10.1); CARBON DIOXIDE 24.7 mmol/L (21.0-32.0); CREATININE - SERUM 1.7 mg/dL (0.6-1.3); POTASSIUM - SERUM 3.6 mmol/L (3.5-5.1)
[2020-03-30 08:00] VITALS: BP 153/58
--- NOTE | 2020-03-30 10:57 | NUR ---
REHAB PRESCREENING Rehab referral received and chart reviewed. Ms. Delatorre is a good candidate for acute inpatient rehab. Rehab will continue to follow her and will accept this patient when her physicians feel she is appropriate for discharge and if she is willing to come. Thank you for this referral! Shanon Olivera, CYLINDER CHECKER Rehab PD
[2020-03-30 13:00] VITALS: BP 146/62
--- NOTE | 2020-03-30 16:52 | MORECARE ---
CASE MANAGEMENT DISCHARGE SUMMARY PATIENT: JOSE A QUINTEROS UNIT: [id number] ADM DATE: 03/25/20 AGE: 79 : 42 SEX: F ROOM/BED: D.1210 AUTHOR: SARABJIT,DOC PHYSICIAN: REFERRING PHYSICIAN: LASHAWN FITZGERALD MD DATE OF SERVICE: 03/30/20 Discharge Plan Patient Name: JOSE A QUINTEROS Facility: [facility]:[place] : 1940 Planned Disposition: Inpatient Rehab Facility Anticipated Discharge Date: 03/31/20 Discharge Date: Expected LOS: 6 Initial Reviewer: [email or web address] Initial Review Date: 03/25/2020 Generated: 03/30/20 5:51 pm Comments DCP- Discharge Planning Updated by [email or web address]: Nikole James on 03/29/20 5:[address] DC plan: Home with [facility]. Faxed information to [facility]. Patient is more alert today, and in agreement for [place] [facility] to come to her home. CM faxed required information to [phone]. Patient and son are both unsure of HHS or SNF. She has family coming from out of state to visit her and wants to be available for that. DCP- Discharge Planning Updated by [email or web address]: Nikole James on 03/28/20 11:[address] DC Needs: Determine OP vs HHS post surgery. Needs BSC. CM met with patient regarding DC needs/plans. Patient is A/O X3.Patient agrees to CM interview. PCP: Dr. Mackey. [facility]. DME: Walker, shower chair, Scooter (no battery). She has her glasses on this morning. Patient lives independently with her son, g-dtr and g-g-dtr. Patient gives permission to speak with her family, if needed. Denies use of community resources. She is unsure of DC plan prior to surgery. Emergency contact: Jeancarlos Laurent (son) [phone]. CM will meet again after PT ambulates her on 03/29. Transportation home will be her son. Patient will require a BSC for home use. Denies being hospitalized within past 30 days. Patient has lived in [place] for past 5 years. DCPIA - Discharge Planning Initial Assessment Updated by [email or web address]: Nikole James on 03/28/20 11:53 am * Is the patient Alert and Oriented? Yes * How many steps to enter\exit or inside your home? * PCP Dr. Mackey * Pharmacy [facility] * Preadmission Environment Home with Family * ADLs Independent * Equipment Shower Chair Walker * Other Equipment Scooter (no battery) * List name and contact numbers for known caregivers / representatives who currently or will assist patient after discharge: Jeancarlos Laurent [phone] * Verbal permission to speak to the caregivers and representatives has been obtained from the patient. Yes * Community resources currently utilized None * Additional services required to return to the preadmission environment? Yes * Can the patient safely return to the preadmission environment? Yes * Has this patient been hospitalized within the prior 30 days at any hospital? No Coverage Notice Reviewer: [id number] Adri James Notice Issued Date-Time: 03/29/2020 18:07 Notice Type: Patient Choice Letter Notice Delivered To: Patient Relationship to Patient: Self Merchant Mill Utility Worker Name: Jose A Quinteros Delivery Method: HAND - Hand Delivered Rachel Days: Prior Verbal Notification: Recipient Understood Notice: Yes Recipient Signature: Yes Med Rec Note Co-signed by Attending: Coverage Notice Comment: Patient choice for [facility] signed. Original given to patient and one placed on chart. Reviewer: [email or web address] Adri James Notice Issued Date-Time: 03/30/2020 10:37 Notice Type: Patient Choice Letter Notice Delivered To: Patient Relationship to Patient: Self Merchant Mill Utility Worker Name: JOSE A QUINTEROS Delivery Method: HAND - Hand Delivered Rachel Days: Prior Verbal Notification: Recipient Understood Notice: Yes Recipient Signature: Yes Med Rec Note Co-signed by Attending: Coverage Notice Comment: Patient choice for [facility] signed and provided for patient. Original placed on the chart. Last DP export: 03/29/20 5:09 p Patient Name: JOSE A QUINTEROS Page [id number] at 1652 All edits/amendments must be made on the electronic document DICTATION DATE: 03/30/201650 SENIOR NETWORK SECURITY ENGINEER: THERON 03/30/201650 RPT#: [id number] DC DATE: STATUS: ADM IN [facility] [address] [place] [address] END OF REPORT
--- NOTE | 2020-03-30 19:31 | MORECARE ---
CASE MANAGEMENT DISCHARGE SUMMARY PATIENT: JOSE A QUINTEROS UNIT: [id number] ADM DATE: 03/25/20 AGE: 79 : 42 SEX: F ROOM/BED: D.1210 AUTHOR: SARABJIT,DOC PHYSICIAN: REFERRING PHYSICIAN: LASHAWN FITZGERALD MD DATE OF SERVICE: 03/30/20 Discharge Plan Patient Name: JOSE A QUINTEROS Facility: [facility]:[place] : 1940 Planned Disposition: Inpatient Rehab Facility Anticipated Discharge Date: 03/31/20 Discharge Date: Expected LOS: 6 Initial Reviewer: [email or web address] Initial Review Date: 03/25/2020 Generated: 03/30/20 8:31 pm Comments DCP- Discharge Planning Updated by [email or web address]: Nikole James on 03/30/20 6:[address] Patient has decided to go into [facility]. CM contacted Christin Root RN, to make aware of evaluation. DCP- Discharge Planning Updated by [id number]: Nikole James on 03/29/20 5:[address] DC plan: Home with [facility]. Faxed information to [facility]. Patient is more alert today, and in agreement for [place] [facility] to come to her home. CM faxed required information to [phone]. Patient and son are both unsure of HHS or SNF. She has family coming from out of state to visit her and wants to be available for that. DCP- Discharge Planning Updated by [email or web address]: Nikole James on 03/28/20 11:[address] DC Needs: Determine OP vs HHS post surgery. Needs BSC. CM met with patient regarding DC needs/plans. Patient is A/O X3.Patient agrees to CM interview. PCP: Dr. Mackey. Pharmacy: [facility]. DME: Walker, shower chair, Scooter (no battery). She has her glasses on this morning. Patient lives independently with her son, g-dtr and g-g-dtr. Patient gives permission to speak with her family, if needed. Denies use of community resources. She is unsure of DC plan prior to surgery. Emergency contact: Jeancarlos Laurent (son) [phone]. CM will meet again after PT ambulates her on 03/29. Transportation home will be her son. Patient will require a BSC for home use. Denies being hospitalized within past 30 days. Patient has lived in [place] for past 5 years. DCPIA - Discharge Planning Initial Assessment Updated by [id number]: Nikole James on 03/28/20 11:53 am * Is the patient Alert and Oriented? Yes * How many steps to enter\exit or inside your home? * PCP Dr. Mackey * Pharmacy [facility] * Preadmission Environment Home with Family * ADLs Independent * Equipment Shower Chair Walker * Other Equipment Scooter (no battery) * List name and contact numbers for known caregivers / representatives who currently or will assist patient after discharge: Jeancarlos Laurent [phone] * Verbal permission to speak to the caregivers and representatives has been obtained from the patient. Yes * Community resources currently utilized None * Additional services required to return to the preadmission environment? Yes * Can the patient safely return to the preadmission environment? Yes * Has this patient been hospitalized within the prior 30 days at any hospital? No Coverage Notice Reviewer: [id number] Adri James Notice Issued Date-Time: 03/29/2020 18:07 Notice Type: Patient Choice Letter Notice Delivered To: Patient Relationship to Patient: Self Service Now Developer Name: Jose A Quinteros Delivery Method: HAND - Hand Delivered Rachel Days: Prior Verbal Notification: Recipient Understood Notice: Yes Recipient Signature: Yes Med Rec Note Co-signed by Attending: Coverage Notice Comment: Patient choice for [facility] signed. Original given to patient and one placed on chart. Reviewer: [id number] Adri James Notice Issued Date-Time: 03/30/2020 10:37 Notice Type: Patient Choice Letter Notice Delivered To: Patient Relationship to Patient: Self Service Now Developer Name: JOSE A QUINTEROS Delivery Method: HAND - Hand Delivered Rachel Days: Prior Verbal Notification: Recipient Understood Notice: Yes Recipient Signature: Yes Med Rec Note Co-signed by Attending: Coverage Notice Comment: Patient choice for [facility] signed and provided for patient. Original placed on the chart. Last DP export: 03/30/20 3:52 p Patient Name: JOSE A QUINTEROS Page [id number] at 1931 All edits/amendments must be made on the electronic document DICTATION DATE: 03/30/201930 JOB RECRUITER: THERON 03/30/201930 RPT#: [id number] DC DATE: STATUS: ADM IN [facility] [address] [place] [address] END OF REPORT
[2020-03-30 20:00] VITALS: BP 131/71
--- NOTE | 2020-03-30 20:00 | NUR ---
ALERT HAVING PEROIDS OF CONFUSION, GETTING UP OUT OF BED WITHOUT CALL FOR ASSISTANCE, BED ALARM ON FALL PRECAUTIONS IN PLACE, ASSISTED UP TO BEDSIDE COMODE AND BACK TO BED, SEE SHIFT ASSESSMENT, CALL LIGHT IN REACH
[2020-03-31 05:02] VITALS: BP 144/54
[2020-03-31] MEDS ORDERED: PERCOCET 10-321 EAC1 PO (07:23)
[2020-03-31] MEDS ORDERED: ELIQUIS2.5 MG PO (07:23)
[2020-03-31 08:15] VITALS: BP 125/38
[2020-03-31 08:18] LABS: BASOPHILS 0.3 % (0-2); EOSINOPHILS 4.1 % (0-7); HEMATOCRIT 31.1 % (36.0-48.0); IMMATURE GRANULOCYTES 0.3 % (0-5); LYMPHOCYTES 16.3 % (15-50); MCH 29.5 pg (26.0-34.0); MCHC 32.2 g/dL (31.0-37.0); MCV 91.7 fL (80.0-100.0); MONOCYTES 8.4 % (2-11); NEUTROPHILS 70.6 % (40-80); PLATELET COUNT 290 10x3/uL (130-400); RBC 3.39 10x6/uL (4.00-5.40); WBC 7.8 10x3/uL (4.8-10.8)
[2020-03-31 08:24] LABS: ALBUMIN 2.7 g/dL (3.4-5.0); ANION GAP 12.2 mmol/L (8-16); BILIRUBIN - TOTAL 0.5 mg/dL (0.2-1.3); CALCIUM 8.6 mg/dL (8.5-10.1); CARBON DIOXIDE 24.6 mmol/L (21.0-32.0); CREATININE - SERUM 1.6 mg/dL (0.6-1.3); POTASSIUM - SERUM 3.8 mmol/L (3.5-5.1); PROTEIN - SERUM 5.6 g/dL (6.4-8.2)
--- NOTE | 2020-03-31 09:00 | NUR ---
PT SITTING UP IN BED. RESP EVEN AND UNLABORED. PAIN REPORTED 5/10 AT THIS TIME. DRESSING C/D/I TO LEFT HIP. MORNING MEDICATIONS ADMINISTERED PER MD ORDERS. DENIES FURTHER NEEDS AT THIS TIME. CL WITHIN REACH. ENCORUAGED TO CALL WITH NEEDS. CONTINUE POC
--- NOTE | 2020-03-31 10:00 | NUR ---
ASSISTED PT WITH BEDSIDE BATH. PT ABLE TO PERFORM MAJORITY OF ADLS. PT BRANDEE WELL. CL WITHIN REACH. REMAINS UP IN CHAIR AT BEDSIDE. DONN CHAIR ALARM IN PLACE. ENCOURAGED TO CALL WITH NEEDS.
[2020-03-31] MEDS ORDERED: COLACE100 MG PO (11:22)
[2020-03-31] MEDS ORDERED: Nicoderm [PBKC] TRANSDERM (11:22)
--- NOTE | 2020-03-31 12:24 | MORECARE ---
CASE MANAGEMENT DISCHARGE SUMMARY PATIENT: JOSE A QUINTEROS UNIT: [id number] ADM DATE: 03/25/20 AGE: 79 : 42 SEX: F ROOM/BED: D.1210 AUTHOR: SARABJIT,DOC PHYSICIAN: REFERRING PHYSICIAN: LASHAWN FITZGERALD MD DATE OF SERVICE: 03/31/20 Discharge Plan Patient Name: JOSE A QUINTEROS Facility: [facility]:[place] : 1940 Planned Disposition: Inpatient Rehab Facility Anticipated Discharge Date: 03/31/20 Discharge Date: Expected LOS: 6 Initial Reviewer: [email or web address] Initial Review Date: 03/25/2020 Generated: 03/31/20 1:24 pm Comments DCP- Discharge Planning Updated by [id number]: Nikole James on 03/30/20 6:[address] Patient has decided to go into [facility]. CM contacted Christin Root RN, to make aware of evaluation. DCP- Discharge Planning Updated by [email or web address]: Nikole James on 03/29/20 5:[address] DC plan: Home with [facility]. Faxed information to [facility]. Patient is more alert today, and in agreement for [place] [facility] to come to her home. CM faxed required information to [phone]. Patient and son are both unsure of HHS or SNF. She has family coming from out of state to visit her and wants to be available for that. DCP- Discharge Planning Updated by [email or web address]: Nikole James on 03/28/20 11:[address] DC Needs: Determine OP vs HHS post surgery. Needs BSC. CM met with patient regarding DC needs/plans. Patient is A/O X3.Patient agrees to CM interview. PCP: Dr. Mackey. Pharmacy: [facility]. DME: Walker, shower chair, Scooter (no battery). She has her glasses on this morning. Patient lives independently with her son, g-dtr and g-g-dtr. Patient gives permission to speak with her family, if needed. Denies use of community resources. She is unsure of DC plan prior to surgery. Emergency contact: Jeancarlos Laurent (son) [phone]. CM will meet again after PT ambulates her on 03/29. Transportation home will be her son. Patient will require a BSC for home use. Denies being hospitalized within past 30 days. Patient has lived in [place] for past 5 years. DCPIA - Discharge Planning Initial Assessment Updated by [id number]: Nikole James on 03/28/20 11:53 am * Is the patient Alert and Oriented? Yes * How many steps to enter\exit or inside your home? * PCP Dr. Mackey * Pharmacy [facility] * Preadmission Environment Home with Family * ADLs Independent * Equipment Shower Chair Walker * Other Equipment Scooter (no battery) * List name and contact numbers for known caregivers / representatives who currently or will assist patient after discharge: Jeancarlos Laurent [phone] * Verbal permission to speak to the caregivers and representatives has been obtained from the patient. Yes * Community resources currently utilized None * Additional services required to return to the preadmission environment? Yes * Can the patient safely return to the preadmission environment? Yes * Has this patient been hospitalized within the prior 30 days at any hospital? No Coverage Notice Reviewer: [id number] Adri James Notice Issued Date-Time: 03/29/2020 18:07 Notice Type: Patient Choice Letter Notice Delivered To: Patient Relationship to Patient: Self Research Phlebotomist Name: Jose A Quinteros Delivery Method: HAND - Hand Delivered Rachel Days: Prior Verbal Notification: Recipient Understood Notice: Yes Recipient Signature: Yes Med Rec Note Co-signed by Attending: Coverage Notice Comment: Patient choice for [facility] signed. Original given to patient and one placed on chart. Reviewer: [id number] Adri James Notice Issued Date-Time: 03/30/2020 10:37 Notice Type: Patient Choice Letter Notice Delivered To: Patient Relationship to Patient: Self Research Phlebotomist Name: JOSE A QUINTEROS Delivery Method: HAND - Hand Delivered Rachel Days: Prior Verbal Notification: Recipient Understood Notice: Yes Recipient Signature: Yes Med Rec Note Co-signed by Attending: Coverage Notice Comment: Patient choice for [facility] signed and provided for patient. Original placed on the chart. Last DP export: 03/30/20 6:31 p Patient Name: JOSE A QUINTEROS Page [phone] at 1224 All edits/amendments must be made on the electronic document DICTATION DATE: 03/31/201223 JUVENILE JUSTICE SPECIALIST: THERON 03/31/204 RPT#: [id number] DC DATE: STATUS: ADM IN [facility] [address] [place] [address] END OF REPORT
[2020-03-31 12:36] VITALS: BP 127/48
--- NOTE | 2020-03-31 14:15 | NUR ---
REPORT CALLED TO [facility].
--- NOTE | 2020-03-31 14:30 | NUR ---
PT DISCHARGE PAPERWORK PROVIDED AND SIGNED BY PT. PT DISCHARGED TO REHAB. PT TAKEN OUT VIA W/C WITH ALL PERSONAL BELONGINGS.
--- NOTE | 2020-04-01 09:00 | MORECARE ---
CASE MANAGEMENT DISCHARGE SUMMARY PATIENT: JOSE A QUINTEROS UNIT: [id number] ADM DATE: 03/25/20 AGE: 79 : 42 SEX: F ROOM/BED: D.1210 AUTHOR: SARABJIT,DOC PHYSICIAN: REFERRING PHYSICIAN: LASHAWN FITZGERALD MD DATE OF SERVICE: 04/01/20 Discharge Plan Patient Name: JOSE A QUINTEROS Facility: [facility]:[place] : 1940 Planned Disposition: Inpatient Rehab Facility Anticipated Discharge Date: 03/31/20 Discharge Date: 03/31/2020 Expected LOS: 6 Initial Reviewer: [id number] Initial Review Date: 03/25/2020 Generated: 04/01/20 10:00 am Comments DCP- Discharge Planning Updated by [email or web address]: Nikole James on 03/30/20 6:[address] Patient has decided to go into [facility]. CM contacted Christin Root RN, to make aware of evaluation. DCP- Discharge Planning Updated by [email or web address]: Nikole James on 03/29/20 5:[address] DC plan: Home with [facility]. Faxed information to [facility]. Patient is more alert today, and in agreement for [facility] to come to her home. CM faxed required information to [phone]. Patient and son are both unsure of HHS or SNF. She has family coming from out of state to visit her and wants to be available for that. DCP- Discharge Planning Updated by [email or web address]: Nikole James on 03/28/20 11:[address] DC Needs: Determine OP vs HHS post surgery. Needs BSC. CM met with patient regarding DC needs/plans. Patient is A/O X3.Patient agrees to CM interview. PCP: Dr. Mackey. Pharmacy: [facility]. DME: Walker, shower chair, Scooter (no battery). She has her glasses on this morning. Patient lives independently with her son, g-dtr and g-g-dtr. Patient gives permission to speak with her family, if needed. Denies use of community resources. She is unsure of DC plan prior to surgery. Emergency contact: Jeancarlos Laurent (son) [phone]. CM will meet again after PT ambulates her on 03/29. Transportation home will be her son. Patient will require a BSC for home use. Denies being hospitalized within past 30 days. Patient has lived in [place] for past 5 years. DCPIA - Discharge Planning Initial Assessment Updated by [id number]: Nikole James on 03/28/20 11:53 am * Is the patient Alert and Oriented? Yes * How many steps to enter\exit or inside your home? * PCP Dr. Mackey * Pharmacy [facility], [place] * Preadmission Environment Home with Family * ADLs Independent * Equipment Shower Chair Walker * Other Equipment Scooter (no battery) * List name and contact numbers for known caregivers / representatives who currently or will assist patient after discharge: Jeancarlos Laurent [phone] * Verbal permission to speak to the caregivers and representatives has been obtained from the patient. Yes * Community resources currently utilized None * Additional services required to return to the preadmission environment? Yes * Can the patient safely return to the preadmission environment? Yes * Has this patient been hospitalized within the prior 30 days at any hospital? No Coverage Notice Reviewer: [id number] Adri James Notice Issued Date-Time: 03/29/2020 18:07 Notice Type: Patient Choice Letter Notice Delivered To: Patient Relationship to Patient: Self Fan Blade Truer Name: Jose A Quinteros Delivery Method: HAND - Hand Delivered Rachel Days: Prior Verbal Notification: Recipient Understood Notice: Yes Recipient Signature: Yes Med Rec Note Co-signed by Attending: Coverage Notice Comment: Patient choice for [facility] signed. Original given to patient and one placed on chart. Reviewer: [id number] Adri James Notice Issued Date-Time: 03/30/2020 10:37 Notice Type: Patient Choice Letter Notice Delivered To: Patient Relationship to Patient: Self Fan Blade Truer Name: JOSE A QUINTEROS Delivery Method: HAND - Hand Delivered Rachel Days: Prior Verbal Notification: Recipient Understood Notice: Yes Recipient Signature: Yes Med Rec Note Co-signed by Attending: Coverage Notice Comment: Patient choice for [facility] signed and provided for patient. Original placed on the chart. Last DP export: 03/31/20 11:24 a Patient Name: JOSE A QUINTEROS Page [phone] at 0900 All edits/amendments must be made on the electronic document DICTATION DATE: 04/01/20899 DISTRICT WIRE CHIEF: THERON 04/01/20899 RPT#: [id number] DC DATE:03/31/20 STATUS: DIS IN [facility] [address] [place] [address] END OF REPORT
== END 2020-03-31 14:48 | DRG 481 ==
LOC: D.ER 17:28 → D.M3 19:07
PROVIDERS: Family Medicine; Orthopaedic Surgery; ADMIT Internal Medicine Nephrology; ATTEND Internal Medicine Nephrology
PROC: 0QS736Z Reposition Left Upper Femur with Intramedullary Internal Fixation Device, Percutaneous Approach (ICD-10-PCS; principal; 2020-03-28 11:30)
DX: S72.145A Nondisplaced intertrochanteric fracture of left femur, initial encounter for closed fracture (principal); F17.213 Nicotine dependence, cigarettes, with withdrawal; N17.9 Acute kidney failure, unspecified; F17.203 Nicotine dependence unspecified, with withdrawal; E11.9 Type 2 diabetes mellitus without complications; E03.9 Hypothyroidism, unspecified; F32.9 Major depressive disorder, single episode, unspecified; W01.0XXA Fall on same level from slipping, tripping and stumbling without subsequent striking against object, initial encounter; Q07.00 Arnold-Chiari syndrome without spina bifida or hydrocephalus

== ENCOUNTER 2020-03-31 15:00 | Inpatient (IN) | payer MEDICARE, OTHER ==
[~2020-03-31] VITALS: Ht 157.5 cm; Wt 63.0 kg
[~2020-03-31 15:00] MED LIST changes: +COLACE100 MG PO; +ELIQUIS2.5 MG PO; +Nicoderm [PBKC] TRANSDERM; +PERCOCET 10-321 EAC1 PO; +VITAMIN D1000 UNI1 PO
[2020-03-31 23:00] VITALS: BP 115/58; BMI 25.5
[2020-04-01 00:35] VITALS: BP 115/58
--- NOTE | 2020-04-01 01:01 | NUR ---
PATIENT RECEIVED LAYING IN BED. EYES CLOSED. RESPIRATIONS 18 & EVEN. BED LOW. ALARM ON. CALL LIGHT WITHIN REACH, WILL CONTINUE TO MONITOR.
--- NOTE | 2020-04-01 02:30 | NUR ---
PATIENT UP IN WHEELCHAIR GOING THROUGH HER CLOTHES. PATIENT TOLIETED. VOID ONLY. PATIENT RETURNED TO BED. BED ALARM WAIVER SIGNED. BED LOW. CALL LIGHT WITHIN REACH. WILL CONTINUE TO MONITOR.
--- NOTE | 2020-04-01 07:22 | NUR ---
PATIENT UP IN W/C PROPELLING THE UNIT, DENIES ANY NEEDS AT THIS TIME, C/L AND FLUIDS IN REACH.
[2020-04-01 08:00] VITALS: BP 135/56
--- NOTE | 2020-04-01 08:00 | NUR ---
PT. RESTING IN BED WATCHING TV, ASSESSMENT COMPLETE, C/L AND FLUIDS IN REACH.
[2020-04-01 08:42] LABS: BASOPHILS 0.2 % (0-2); EOSINOPHILS 4.8 % (0-7); HEMATOCRIT 31.7 % (36.0-48.0); IMMATURE GRANULOCYTES 0.2 % (0-5); LYMPHOCYTES 19.6 % (15-50); MCHC 31.5 g/dL (31.0-37.0); MCV 91.9 fL (80.0-100.0); MEAN PLATELET VOLUME 9.9 fL (7.4-10.4); MONOCYTES 7.7 % (2-11); NEUTROPHILS 67.5 % (40-80); PLATELET COUNT 324 10x3/uL (130-400); RBC 3.45 10x6/uL (4.00-5.40); RDW 13.2 % (11.5-14.5); WBC 8.1 10x3/uL (4.8-10.8)
[2020-04-01 08:49] LABS: CALCIUM 8.5 mg/dL (8.5-10.1); CARBON DIOXIDE 23.8 mmol/L (21.0-32.0); CREATININE - SERUM 1.8 mg/dL (0.6-1.3); POTASSIUM - SERUM 3.8 mmol/L (3.5-5.1)
--- NOTE | 2020-04-01 12:00 | NUR ---
PATIENT RESTING IN BED WATCHING TV, DENIES ANY NEEDS AT THIS TIME, C/L AND FLUIDS IN REACH.
--- NOTE | 2020-04-01 12:04 | NUR ---
PATIENT ADMITTED TO REHAB FROM ACUTE FLOOR. HER PCP IS DR. RIOS. DME AT HOME IS A WALKER AND A SHOWER CHAIR. SHE HAS A SCOOTER BUT HAS NO BATTERY. SHE LIVES WITH HER SON AND DAUGHTER N LAW. DISCHARGE PLANS ARE FOR HER TO RETURN TO HER HOME. WILL CONTINUE TO FOLLOW WITH PATIENT.
--- NOTE | 2020-04-01 12:06 | NUR ---
PATIENT IS A CLIENT OF [facility].
[2020-04-01 13:40] VITALS: Ht 157.5 cm; Wt 63.0 kg
--- NOTE | 2020-04-01 15:55 | NUR ---
PATIENT RESTING IN BED WATCHING TV, DENIES ANY NEEDS AT THIS TIME, C/L AND FLUIDS IN REACH.
--- NOTE | 2020-04-01 19:31 | NUR ---
PT RESTING QUIETLY WITH EYES CLOSED. BED IN LOW SIDE RAILS X2. CL IN REACH. NO DISTRESS NOTED. RESP EVEN AND UNLABORED. BED ALARM WAIVER IN CHART. WILL CONTINUE TO MONITOR.
--- NOTE | 2020-04-02 01:54 | NUR ---
I have reviewed this patient and I concur with the Shift Assessment completed by the Licensed Practical Nurse today this shift.
--- NOTE | 2020-04-02 05:30 | NUR ---
ASSISTED TO AND FROM BATHROOM. DENIES FURTHER NEEDS. CL IN REACH. WCTM
[2020-04-02 08:05] VITALS: BP 136/48
--- NOTE | 2020-04-02 08:13 | NUR ---
PATIENT IN BED EATING BREAKFAST, DENIES ANY NEEDS AT THIS TIME, C/L AND FLUIDS IN REACH.
--- NOTE | 2020-04-02 10:09 | NUR ---
ASSESSMENT COMPLETE, DENIES ANY NEEDS AT THIS TIME, C/L AND FLUIDS IN REACH.
--- NOTE | 2020-04-02 12:00 | NUR ---
I have reviewed this patient and I concur with the Shift Assessment completed by the Licensed Practical Nurse today this shift.
--- NOTE | 2020-04-02 13:39 | NUR ---
PATIENT AWAKE AND ALERT IN BED WATCHING TV, DENIES ANY NEEDS AT THIS TIME, C/L AND FLUIDS IN REACH.
--- NOTE | 2020-04-02 16:11 | NUR ---
UP IN W/C WATCHING TV, DENIES ANY NEEDS OR PAIN AT THIS TIME, C/L AND FLUIDS IN REACH.
--- NOTE | 2020-04-02 19:17 | NUR ---
PT LYING IN BED RESTING QUIETLY EYES CLOSED. CL IN REACH. NO DISTRESS NOTED. BED IN LOW SIDE RAILS X2. BED ALARM WAIVER. RESP EVEN AND UNLABORED. LUNGS CLEAR. BOWEL ACTIVE X4. WILL CONTINUE TO MONITOR.
[2020-04-02 20:30] VITALS: BP 143/49
--- NOTE | 2020-04-03 00:26 | NUR ---
I have reviewed this patient and I concur with the Shift Assessment completed by the Licensed Practical Nurse today this shift.
--- NOTE | 2020-04-03 01:30 | NUR ---
PT RESTING QUIETLY. EYES CLOSED. NO DISTRESS NOTED. WCTM
--- NOTE | 2020-04-03 05:30 | NUR ---
ASSISTED TO AND FROM BATHROOM. DENIES FURTHER NEEDS. CL IN REACH. BACK IN BED. WCTM
--- NOTE | 2020-04-03 07:35 | NUR ---
PT RESTING IN BED WITH EYES OPEN CALL LIGHT IN REACH WILL MONITER
--- NOTE | 2020-04-03 07:54 | NUR ---
I have reviewed this patient and I concur with the Shift Assessment completed by the Licensed Practical Nurse today this shift.
[2020-04-03 09:28] VITALS: BP 129/46
--- NOTE | 2020-04-03 16:30 | NUR ---
PT RESTING IN BED WITH EYES OPEN CALL LIGHT IN REACH WILL MONITER
--- NOTE | 2020-04-03 19:28 | NUR ---
PT LYING IN BED WATCHING TV. CL IN REACH. DENIES NEEDS OR PAIN AT THIS TIME. BED IN LOW SIDE RAILS X2. A/O X4. LUNGS CLEAR. BOWEL ACTIVE X4. RESP EVEN AND UNLABORED. BED ALARM WAIVER IN CHART. WILL CONTINUE TO MONITOR.
--- NOTE | 2020-04-04 05:05 | NUR ---
I have reviewed this patient and I concur with the Shift Assessment completed by the Licensed Practical Nurse today this shift.
[2020-04-04 06:47] LABS: BASOPHILS 0.4 % (0-2); EOSINOPHILS 5.9 % (0-7); HEMATOCRIT 32.4 % (36.0-48.0); HEMOGLOBIN 10.1 g/dL (12-16); IMMATURE GRANULOCYTES 0.6 % (0-5); LYMPHOCYTES 36.2 % (15-50); MCH 29.2 pg (26.0-34.0); MCHC 31.2 g/dL (31.0-37.0); MCV 93.6 fL (80.0-100.0); MEAN PLATELET VOLUME 9.6 fL (7.4-10.4); MONOCYTES 7.3 % (2-11); NEUTROPHILS 49.6 % (40-80); RBC 3.46 10x6/uL (4.00-5.40); RDW 13.5 % (11.5-14.5); WBC 7.1 10x3/uL (4.8-10.8)
[2020-04-04 06:53] LABS: PLATELET COUNT 408 10x3/uL (130-400)
[2020-04-04 06:55] LABS: ANION GAP 11.7 mmol/L (8-16); CALCIUM 8.6 mg/dL (8.5-10.1); CARBON DIOXIDE 26.1 mmol/L (21.0-32.0); CREATININE - SERUM 1.8 mg/dL (0.6-1.3); POTASSIUM - SERUM 3.8 mmol/L (3.5-5.1)
--- NOTE | 2020-04-04 08:00 | NUR ---
PT RESTING IN BED WITH EYES OPEN CALL LIGHT IN REACH PT EATING BREAKFAST WILL MONITER
--- NOTE | 2020-04-04 18:50 | NUR ---
PT RESTING IN BED WITH EYES OPEN CALL LIGHT IN REACH WILL MONITER
--- NOTE | 2020-04-04 19:00 | NUR ---
PT UP IN CHAIR, NO NEEDS NOTED, WAIVER SIGNED, FLUIDS/CALL LIGHT WITHIN REACH
[2020-04-05 00:09] VITALS: BP 135/40
--- NOTE | 2020-04-05 01:00 | NUR ---
PT ASLEEP, AROUSES EASILY TO VOICE, NO NEEDS NOTED, FLUIDS/CALL LIGHT WITHIN REACH
[2020-04-05 07:53] VITALS: BP 133/43
--- NOTE | 2020-04-05 08:00 | NUR ---
PATIENT RESTING IN BED WITH EYES CLOSED, V/S COMPLETE, DENIES ANY NEEDS AT THIS TIME, C/L AND FLUIDS IN REACH.
--- NOTE | 2020-04-05 09:18 | NUR ---
PATIENT UP IN W/C, ASSESSMENT COMPLETE, DENIES ANY NEEDS AT THIS TIME, C/L AND FLUIDS IN REACH.
--- NOTE | 2020-04-05 09:56 | NUR ---
I have reviewed this patient and I concur with the Shift Assessment completed by the Licensed Practical Nurse today this shift.
--- NOTE | 2020-04-05 11:57 | NUR ---
SITTING UP IN BED WATCHING TV, DENIES ANY NEEDS AT THIS TIME, C/L AND FLUIDS IN REACH.
--- NOTE | 2020-04-05 13:40 | NUR ---
Nutrition follow-up: Diet: Regular PO intake 75-100% of most meals labs reviewed Wt: 138# +BM PO intake is good at this time RDN following.
--- NOTE | 2020-04-05 16:00 | NUR ---
PATIENT UP IN W/C VISITING WITH SON, DENIES ANY NEEDS AT THIS TIME, C/L AND FLUIDS IN REACH.
--- NOTE | 2020-04-05 19:50 | NUR ---
PATIENT RECEIVED SITTING UP IN BED. ASSESSMENT & VITAL SIGNS DONE. NO C/O PAIN OR DISTRESS. BED LOW. CALL LIGHT WITHIN REACH. WILL CONTINUE TO MONITOR.
[2020-04-05 19:55] VITALS: BP 118/41
--- NOTE | 2020-04-05 23:59 | NUR ---
I have reviewed this patient and I concur with the Shift Assessment completed by the Licensed Practical Nurse today this shift.
--- NOTE | 2020-04-06 03:48 | NUR ---
PATIENT EYES CLOSED. RESPIRATIONS 18 & EVEN. BED LOW. CALL LIGHT WITHIN REACH. WILL CONTINUE TO MONITOR.
--- NOTE | 2020-04-06 07:21 | NUR ---
AWAKENED.REPORT GIVEN.INTRODUCTION AT BEDSIDE.CL IN REACH.DENIES NEEDS.
[2020-04-06 08:00] VITALS: BP 118/39
--- NOTE | 2020-04-06 08:04 | NUR ---
BEDSIDE REPORT AND INTRO DONE.CL IN REACH.BREAKFAST GIVEN.
[2020-04-06 08:55] LABS: BASOPHILS 0.5 % (0-2); EOSINOPHILS 5.1 % (0-7); HEMATOCRIT 33.7 % (36.0-48.0); HEMOGLOBIN 10.7 g/dL (12-16); IMMATURE GRANULOCYTES 0.7 % (0-5); LYMPHOCYTES 27.5 % (15-50); MCH 29.6 pg (26.0-34.0); MCHC 31.8 g/dL (31.0-37.0); MCV 93.1 fL (80.0-100.0); MEAN PLATELET VOLUME 9.1 fL (7.4-10.4); MONOCYTES 6.3 % (2-11); NEUTROPHILS 59.9 % (40-80); PLATELET COUNT 443 10x3/uL (130-400); RBC 3.62 10x6/uL (4.00-5.40); RDW 13.4 % (11.5-14.5); WBC 7.6 10x3/uL (4.8-10.8)
[2020-04-06 09:14] LABS: ANION GAP 12.9 mmol/L (8-16); CALCIUM 8.7 mg/dL (8.5-10.1); CARBON DIOXIDE 25.1 mmol/L (21.0-32.0); CREATININE - SERUM 1.9 mg/dL (0.6-1.3)
--- NOTE | 2020-04-06 12:00 | NUR ---
SITTING UP FOR LUNCH.CL IN REACH.
--- NOTE | 2020-04-06 14:12 | NUR ---
CARE TEAM MEETING: PATIENT DOING WELL IN THERAPY. HER TENATIVE DISCHARGE DATE IS 04/08/20. WILL CONTINUE TO FOLLOW WITH PATIENT.
[2020-04-06 20:00] VITALS: BP 125/43
--- NOTE | 2020-04-06 20:00 | NUR ---
PATIENT RECEIVED LAYING IN BED. ASSESSMENT & VITAL SIGNS DONE. LEFT KNEE DRESSINGS C/D/I. BED LOW. CALL LIGHT WITHIN REACH. WILL CONTINUE TO MONITOR.
--- NOTE | 2020-04-07 04:29 | NUR ---
I have reviewed this patient and I concur with the Shift Assessment completed by the Licensed Practical Nurse today this shift.
--- NOTE | 2020-04-07 04:40 | NUR ---
PATIENT EYES CLOSED. RESPIRATIONS 18 & EVEN. BED LOW. WATER & CALL LIGTH WITHIN REACH. WILL CONTINUE TO MONITOR.
[2020-04-07 07:49] VITALS: BP 121/41
--- NOTE | 2020-04-07 08:00 | NUR ---
SHIFT ASSMT COMPLETED.
--- NOTE | 2020-04-07 12:00 | NUR ---
EATING LUNCH.DENIES NEEDS.
--- NOTE | 2020-04-07 15:36 | NUR ---
RESTING QUIETLY.CONT POC
--- NOTE | 2020-04-07 19:20 | NUR ---
PT IN BED NO NEEDS NOTED, ALARM WAIVER, FLUIDS/CALL LIGHT WITHIN REACH
[2020-04-07 19:35] VITALS: BP 118/36
--- NOTE | 2020-04-07 20:40 | NUR ---
PT REQUEST PRN PAIN MED WITH MED PASS
[2020-04-08 06:49] LABS: BASOPHILS 0.4 % (0-2); EOSINOPHILS 4.7 % (0-7); HEMATOCRIT 31.8 % (36.0-48.0); HEMOGLOBIN 10.1 g/dL (12-16); IMMATURE GRANULOCYTES 0.4 % (0-5); LYMPHOCYTES 34.2 % (15-50); MCH 29.3 pg (26.0-34.0); MCHC 31.8 g/dL (31.0-37.0); MCV 92.2 fL (80.0-100.0); MEAN PLATELET VOLUME 9.1 fL (7.4-10.4); MONOCYTES 6.9 % (2-11); NEUTROPHILS 53.4 % (40-80); PLATELET COUNT 463 10x3/uL (130-400); RBC 3.45 10x6/uL (4.00-5.40); RDW 13.6 % (11.5-14.5); WBC 7.4 10x3/uL (4.8-10.8)
[2020-04-08 07:05] LABS: ANION GAP 9.1 mmol/L (8-16); CALCIUM 8.6 mg/dL (8.5-10.1); CARBON DIOXIDE 25.7 mmol/L (21.0-32.0); CREATININE - SERUM 1.8 mg/dL (0.6-1.3); POTASSIUM - SERUM 3.8 mmol/L (3.5-5.1)
[2020-04-08 08:00] VITALS: BP 118/46
[2020-04-08] MEDS ORDERED: PERCOCET 10-321 EAC1 PO (08:50)
--- NOTE | 2020-04-08 08:50 | RHP ---
PATIENT: JOSE A QUINTEROS MEDICAL RECORD: [id number] ACCOUNT: [id number] LOCATION:[facility].1116 : [birth year] ADMISSION DATE: 03/31/20 REHABILITATION HISTORY AND PHYSICAL EXAMINATION POST ADMISSION PHYSICIAN EXAMINATION HISTORY OF PRESENT ILLNESS: The patient is a 79-year-old female patient admitted to rehab with a working diagnosis of nondisplaced intertrochanteric fracture of the proximal femur. She presented to the ED after slipping and falling on the driveway, landing on her left hip. She also complained of left elbow pain. She had a small skin tear. She has got a history of Arnold-Chiari malformation, diabetes, hypothyroidism, depression and arthritis. She was admitted for surgical consult, underwent a gamma nail on her left intertrochanteric fracture on 03/28/2020. She has progressed with physical therapy. She needs to be monitored closely though because she is requiring some supplemental O2. Pain control. She is on anticoagulation therapy. Monitoring some surgical wound status at this time. She has got acute blood loss anemia. She is on a sliding scale for blood sugars. She has electrolyte abnormalities. She has got weakness, balance deficits, decreased activity tolerance, impaired mobility, decreased range of motion, decreased strength, gait disturbance, limited safety awareness. She is risk for falls and needs cues for equipment. She fatigues easily. She has got inability to care for herself. These are all barriers to her discharge home at this time. She lives at home with her son, granddaughter and great granddaughter and was independent with ADLs and mobility prior to this, using a rolling walker. Currently set up to max assist for ADLs and mod assist for mobility. She and her family are planning for return home at her prior level of functioning or better. COMORBIDITIES: Include weakness, left intertrochanteric fracture, Arnold-Chiari malformation, acute kidney injury, glaucoma, diabetes, hypothyroidism, depression, arthritis, tobacco use, nicotine dependence, constipation and blood loss anemia. PAST MEDICAL HISTORY: Significant for neuropathy, Chiari malformation, cataracts, got a history of dry eye syndrome, diabetes. She has got depression, tobacco use, arthritis. PAST SURGICAL HISTORY: Includes hysterectomy, bilateral mastectomy, breast implants, pilonidal cyst, bilateral knee replacements, bladder suspension, and tonsillectomy. ALLERGIES: SULFA, CODEINE, AND SHE IS ALLERGIC TO HYMENOPTERA. CURRENT MEDICATIONS: Include vitamin D 1000 units daily, she is on Januvia 50 mg daily, she is on Paxil 40 mg daily, Nicoderm patch 14 mg daily, fenofibrate 145 mg daily, Synthroid 50 mcg daily, Tylenol 650 every 4 hours p.r.n., Colace 100 mg b.i.d., Eliquis 2.5 mg b.i.d., Trulicity she takes weekly, Percocet 10/325 one tab every 4 to 6 hours p.r.n., and MiraLax p.r.n. HABITS: Does have a history of tobacco use. FAMILY HISTORY: Noncontributory. SOCIAL HISTORY: The patient hopes to return back home and get back to her prior level of functioning. She has got a strong social support. HISTORY AND PHYSICAL [id number] JOSE A QUINTEROS REVIEW OF SYSTEMS: GENERAL: Does complain of some weakness. PSYCHIATRIC: Denies cold, cough, or congestion. CARDIOVASCULAR: Denies chest pain. PHYSICAL EXAMINATION: VITAL SIGNS: Stable, afebrile. GENERAL: An elderly female, in no acute distress upon exam. HEENT: Normocephalic and atraumatic. Mucosa moist. NECK: Supple. No lymphadenopathy. LUNGS: Clear at this time. No wheezing, rhonchi or rales. HEART: Regular rate and rhythm. She does have a holosystolic murmur. ABDOMEN: Soft, benign, and nondistended. Positive bowel sounds times 4. EXTREMITIES: No clubbing, cyanosis or edema. Postop area looks good. NEUROLOGIC: She does have noted proximal muscle weakness of her thighs and upper arms. LABORATORY DATA: White count is 8.1, H&H of 10 and 31 and platelet count is noted to be 324. Sodium 139, potassium 3.8, BUN and creatinine of 30 and 1.8, and blood sugar is noted to be 104. ASSESSMENT: This is a 79-year-old female patient admitted to rehab with a working diagnosis of intertrochanteric hip fracture, status post gamma nailing. The patient has potential to make improvement. We instituted the following multidisciplinary therapies include, but not limited to physical, occupational, respiratory, speech, nutritional services, prosthetics and orthotics. Given her complex medical condition and risk for more complications, rehabilitation services cannot be provided at a low level of care such as penitentiary facility. PLAN: 1. Admit to [facility] for intensive inpatient therapy to include the following disciplines; A. Physical therapy to improve gait, all transfer skills and bed mobility to a modified independent level. B. Occupational therapy to improve activities of daily living. C. Case management to assist with discharge planning and placement options. D. Nutrition to assist with nutritional needs. E. Rehabilitation nursing to assist in monitoring the patient's underlying medical conditions and to assist with any type of bowel or bladder management. 2. The patient's current medication and medical care will be continued. 3. The patient will be placed on standard fall precautions. 4. The patient's estimated length of stay is approximately 7-10 days. 5. We will continue on Eliquis for DVT prophylaxis and see again in the a.m. TRANSINT:[id number] Voice Confirmation ID: [id number] DOCUMENT ID: [id number] JOSEPH notes whether there has been none or any medical/functional change since admission: - No change since preadmission screen. JOSEPH attests patient continues to be appropriate for IRF: HISTORY AND PHYSICAL [id number] JOSE A QUINTEROS - Continues to be appropriate. HELEN SEPULVEDA MD at 0850 CC: [id number] DICTATION DATE: 04/01/20910 PHOTOGRAPHIC LITHOGRAPHER: 04/01/20 1024 ADM IN [facility] [address] [place] [address]
--- NOTE | 2020-04-08 09:57 | NUR ---
PATIENT DISCHARGING HOME TODAY WITH FAMILY. [facility] WILL RESUME THERAPY AT HOME. NO NEW DME NEEDED AT THIS TIME. DR. RIOS 04/25/20 @ 3:20, DR. LEWIS 04/20/20 @ 2:15. AGATHA SIGNED, IMM SERVED AND EXPLIANED, ONE GIVEN TO PATIENT AND ONE FILED IN CHART. NO COMPARE DATA REVIWED PATIENT IS A CLIENT OF [facility]. DISCHARGE INSTRUCTIONS FAXED TO PCP, HOME HEALTH AND REVIEWD WITH PATIENT PER PRIMARY NURSE.
--- NOTE | 2020-04-08 10:38 | NUR ---
HAS BEEN RESTING QUIETLY IN BED. DENIES INCREASED PAIN TO HIP. PEDAL PULSES PRESENT X2. USES WALKER FOR AMBULATION ASST. IS SCHEDULED TO DC HOMOE TODAY. CALL LIGHT IN REACH
--- NOTE | 2020-04-08 14:43 | NUR ---
DC HOME WITH ALL PERSONAL BELONGINGS. MEDS CALLED INTO PHARMACY. DENIES QUESTIONS. REVIEWED MEDS. DC PLAN AND FOLLOW UP APPTS.
== END 2020-04-08 14:45 | disposition home health service (06) | DRG 560 ==
LOC: D.REHAB 15:00
PROVIDERS: Emergency Medicine; ADMIT Family Medicine; ATTEND Family Medicine
DX: S72.145D Nondisplaced intertrochanteric fracture of left femur, subsequent encounter for closed fracture with routine healing (principal); N17.9 Acute kidney failure, unspecified; D62 Acute posthemorrhagic anemia; F17.203 Nicotine dependence unspecified, with withdrawal; W19.XXXD Unspecified fall, subsequent encounter; R53.1 Weakness; E11.9 Type 2 diabetes mellitus without complications; E03.9 Hypothyroidism, unspecified; K59.00 Constipation, unspecified; H40.9 Unspecified glaucoma; F32.9 Major depressive disorder, single episode, unspecified; Q07.00 Arnold-Chiari syndrome without spina bifida or hydrocephalus; N20.0 Calculus of kidney

== ENCOUNTER 2020-08-27 09:49 | Inpatient (IN) | payer MEDICARE, OTHER ==
[~2020-08-27] VITALS: Ht 157.5 cm; Wt 58.1 kg
[2020-08-27 10:28] LABS: BASOPHILS 0.5 % (0-2); EOSINOPHILS 3.3 % (0-7); HEMATOCRIT 37.1 % (36.0-48.0); HEMOGLOBIN 12.2 g/dL (12-16); IMMATURE GRANULOCYTES 0.1 % (0-5); MCH 29.5 pg (26.0-34.0); MCHC 32.9 g/dL (31.0-37.0); MCV 89.8 fL (80.0-100.0); MEAN PLATELET VOLUME 10.1 fL (7.4-10.4); NEUTROPHILS 75.1 % (40-80); PLATELET COUNT 322 10x3/uL (130-400); RBC 4.13 10x6/uL (4.00-5.40); RDW 14.2 % (11.5-14.5)
[2020-08-27 10:33] LABS: INR 1.01 (0.85-1.17); PROTIME 13.3 SECONDS (11.6-15.0)
[2020-08-27 10:34] LABS: APTT 25.9 SECONDS (22.8-39.4)
[2020-08-27 10:47] LABS: BILIRUBIN NEGATIVE (NEGATIVE); KETONE NEGATIVE (NEGATIVE); NITRITE NEGATIVE (NEGATIVE); UROBILINOGEN NORMAL mg/dL (< 2)
[2020-08-27 10:59] LABS: EPITHELIAL CELLS 0-5 /hpf (0-5); WHITE CELLS - URINE 0-5 HPF (0-4)
[2020-08-27 11:00] LABS: BACTERIA FEW HPF (NONE SEEN)
[2020-08-27 11:28] LABS: ANION GAP 13.4 mmol/L (8-16); CALCIUM 9.4 mg/dL (8.5-10.1); CARBON DIOXIDE 24.4 mmol/L (21.0-32.0); CREATININE - SERUM 2.1 mg/dL (0.6-1.3); POTASSIUM - SERUM 3.8 mmol/L (3.5-5.1)
[2020-08-27 11:34] LABS: ALBUMIN 3.6 g/dL (3.4-5.0); BILIRUBIN - TOTAL 0.44 mg/dL (0.2-1.3); PROTEIN - SERUM 6.5 g/dL (6.4-8.2)
--- NOTE | 2020-08-27 16:00 | NUR ---
ANCEF INFUSION STOPPED AT 1335
[2020-08-27 16:24] VITALS: BP 133/55
--- NOTE | 2020-08-27 19:34 | NUR ---
REC'D PATIENT TO ROOM FROM ER. NO S/S OF DISTRESS. PATIENT IN BED AND DENIES NEEDS AT THIS TIME. BED IN LOWEST POSITION AND CALL LIGHT WITHIN REACH. ENCOURAGED THE PATIENT TO CALL IF SHE HAS NEEDS. WILL CONTINUE TO MONITOR.
--- NOTE | 2020-08-27 19:50 | NUR ---
DRESSINGS APPLIED TO WOUNDS,SLING APPLIED, PT TOLERATED WELL.
--- NOTE | 2020-08-27 20:23 | NUR ---
SPOKE WITH SUPERVISOR MOLD CONSTRUCTION IN REGARDS TO NEEDING HUMULIN FOR PATIENT.
[2020-08-27 22:26] VITALS: BP 155/39; BMI 23.4
[2020-08-27] MEDS ORDERED: CENTRUM SILVER1 EAC3 PO (22:49)
[2020-08-28] VITALS (9 sets, daily range): BP systolic 115–159; BP diastolic 40–71
[2020-08-28 05:56] LABS: BASOPHILS 0.3 % (0-2); EOSINOPHILS 3.2 % (0-7); HEMATOCRIT 31.2 % (36.0-48.0); HEMOGLOBIN 9.8 g/dL (12-16); IMMATURE GRANULOCYTES 0.3 % (0-5); LYMPHOCYTES 27.7 % (15-50); MCH 28.8 pg (26.0-34.0); MCHC 31.4 g/dL (31.0-37.0); MEAN PLATELET VOLUME 11.2 fL (7.4-10.4); MONOCYTES 8.7 % (2-11); NEUTROPHILS 59.8 % (40-80); RDW 14.5 % (11.5-14.5); WBC 7.8 10x3/uL (4.8-10.8)
[2020-08-28 06:08] LABS: MCV 91.8 fL (80.0-100.0); PLATELET COUNT 249 10x3/uL (130-400)
[2020-08-28 06:15] LABS: ANION GAP 11.2 mmol/L (8-16); CALCIUM 8.4 mg/dL (8.5-10.1); CARBON DIOXIDE 24.7 mmol/L (21.0-32.0); CREATININE - SERUM 2.1 mg/dL (0.6-1.3); PHOSPHOROUS 4.2 mg/dL (2.5-4.9); POTASSIUM - SERUM 3.9 mmol/L (3.5-5.1)
--- NOTE | 2020-08-28 08:14 | NUR ---
OUT OF ROOM FOR PROCEDURE. NO ACUTE DISTRESS NOTED. TAKEN VIA BED
--- NOTE | 2020-08-28 09:02 | NUR ---
SKIN TEAR DOWN FOREARM ON LEFT ARM PRESENT UPON ENTERING THE OR. RIGHT THUMB PURPLE FROM BRUISING UPON ENTERING THE OR.
--- NOTE | 2020-08-28 09:41 | NUR ---
ANESTHESIA BLOCK DONE AT THE END OF CASE WHILE STILL IN THE OR
--- NOTE | 2020-08-28 10:14 | NUR ---
RECEIVED PT FROM RECOVERY VIA BED. NO ACUTE DISTRESS NOTED. DENIES PAIN AT THIS TIME. BED IN LOWEST POSITION, LOCKED, SIDE RAILS UP X2. CALL LIGHT WITHIN REACH. LEFT SHOULDER HAS GAUZE WITH METOPORE TAPE. IT IS CLEAN, DRY AND INTACT. ICE PACK IS LAYING ON TOP OF DRESSING. NEEDS ANTICIPATED AND MET. WILL CONTINUE TO MONITOR
--- NOTE | 2020-08-28 19:05 | NUR ---
PATIENT RESTING IN BED WITH NO S/S OF DISTRESS AND DENIES NEEDS AT THIS TIME. PATIENT DENIES PAIN AT THIS TIME. BED IN LOWEST POSITION AND CALL LIGHT WITHIN REACH. ENCOURAGED THE PATIENT TO CALL IF SHE HAS NEEDS. WILL CONTINUE TO MONITOR.
--- NOTE | 2020-08-28 20:48 | NUR ---
ADMINISTERED MEDS PER ORDERS. ASSISTED PATIENT TO AND FROM RESTROOM. PATIENT DENIES OTHER NEEDS AT THIS TIME. BED IN LOWEST POSITION, CALL LIGHT WITHIN REACH, AND BED ALARM ON. WILL CONTINUE TO MONITOR.
--- NOTE | 2020-08-28 22:12 | NUR ---
RESPONDED TO PATIENT'S BED ALARM. ASSISTED PATIENT TO AND FROM RESTROOM. EXPLAINED TO THE PATIENT THAT SHE NEEDS TO CALL FOR HELP WHEN GOING TO THE RESTROOM. PATIENT VERBALIZED UNDERSTANDING. BED IN LOWEST POSITION, CALL LIGHT WITHIN REACH, NON SKID SOCKS IN PLACE, AND BED ALARM ON. ENCOURAGED THE PATIENT TO CALL FOR NEEDS. WILL CONTINUE TO MONITOR.
[2020-08-29 01:24] VITALS: BP 153/55
[2020-08-29 06:23] VITALS: BP 155/48
[2020-08-29 06:24] LABS: BASOPHILS 0.1 % (0-2); EOSINOPHILS 1.5 % (0-7); HEMOGLOBIN 8.4 g/dL (12-16); IMMATURE GRANULOCYTES 0.2 % (0-5); LYMPHOCYTES 27.3 % (15-50); MCH 29.6 pg (26.0-34.0); MCHC 32.3 g/dL (31.0-37.0); MCV 91.5 fL (80.0-100.0); MEAN PLATELET VOLUME 10.5 fL (7.4-10.4); MONOCYTES 8.6 % (2-11); NEUTROPHILS 62.3 % (40-80); PLATELET COUNT 251 10x3/uL (130-400); RBC 2.84 10x6/uL (4.00-5.40); RDW 14.4 % (11.5-14.5); WBC 8.4 10x3/uL (4.8-10.8)
[2020-08-29 07:04] LABS: ANION GAP 9.6 mmol/L (8-16); CALCIUM 8.2 mg/dL (8.5-10.1); CARBON DIOXIDE 26.1 mmol/L (21.0-32.0); CREATININE - SERUM 1.9 mg/dL (0.6-1.3); MAGNESIUM - SERUM 1.8 mg/dL (1.8-2.4); POTASSIUM - SERUM 3.7 mmol/L (3.5-5.1)
[2020-08-29 08:00] VITALS: BP 121/70
[2020-08-29 12:20] VITALS: BP 131/46
[2020-08-29 12:33] VITALS: Ht 157.5 cm; Wt 58.1 kg
--- NOTE | 2020-08-29 19:31 | NUR ---
PATIENT RESTING IN BED WITH NO S/S OF DISTRESS. BED IN LOWEST POSITION, CALL LIGHT WITHIN REACH, AND BED ALARM ON. ENCOURAGED THE PATIENT TO CALL IF SHE HAS NEEDS. WILL CONTINUE TO MONITOR.
[2020-08-29 20:00] VITALS: BP 164/61
--- NOTE | 2020-08-29 21:27 | NUR ---
ADMINISTERED MEDS PER ORDERS. PATIENT DENIES NEEDS. WILL CONTINUE TO MONITOR.
[2020-08-30] VITALS: BP 150/58
[2020-08-30 04:00] VITALS: BP 130/67
[2020-08-30 06:23] LABS: BASOPHILS 0.2 % (0-2); HEMATOCRIT 27.5 % (36.0-48.0); HEMOGLOBIN 8.8 g/dL (12-16); IMMATURE GRANULOCYTES 0.2 % (0-5); LYMPHOCYTES 29.3 % (15-50); MCH 28.9 pg (26.0-34.0); MCV 90.5 fL (80.0-100.0); MEAN PLATELET VOLUME 10.4 fL (7.4-10.4); MONOCYTES 8.3 % (2-11); PLATELET COUNT 279 10x3/uL (130-400); RBC 3.04 10x6/uL (4.00-5.40); RDW 14.2 % (11.5-14.5); WBC 8.5 10x3/uL (4.8-10.8)
[2020-08-30 07:44] LABS: CALCIUM 8.4 mg/dL (8.5-10.1); CARBON DIOXIDE 26.9 mmol/L (21.0-32.0); CREATININE - SERUM 1.8 mg/dL (0.6-1.3); MAGNESIUM - SERUM 1.8 mg/dL (1.8-2.4); PHOSPHOROUS 2.9 mg/dL (2.5-4.9); POTASSIUM - SERUM 3.9 mmol/L (3.5-5.1)
[2020-08-30 07:59] LABS: % SATURATION 8 % (15-55); IRON 22 ug/dl (35-150); TOTAL IRON BIND CAPACITY 251 ug/dl (260-445); UNSAT IRON BIND CAPACITY 229 ug/dl (150-375)
[2020-08-30 08:00] VITALS: BP 136/49
[2020-08-30] MEDS ORDERED: HYDROCODON-ACE1 EA10 PO ×3 (08:04→11:47)
[2020-08-30] MEDS ORDERED: COLACE100 MG PO (09:28)
[2020-08-30] MEDS ORDERED: PROTONIX40 MG PO (09:28)
[2020-08-30] MEDS ORDERED: FERROUS SULFAT325 MG PO (09:28)
--- NOTE | 2020-08-30 10:47 | MORECARE ---
CASE MANAGEMENT DISCHARGE SUMMARY PATIENT: JOSE A QUINTEROS UNIT: [id number] ADM DATE: 08/27/20 AGE: 80 : 42 SEX: F ROOM/BED: D.2234 AUTHOR: SARABJIT,DOC PHYSICIAN: REFERRING PHYSICIAN: ERWIN BLANTON MD DATE OF SERVICE: 08/30/20 Discharge Plan Patient Name: JOSE A QUINTEROS Facility: [facility]:[place] : 1940 Planned Disposition: Inpatient Rehab Anticipated Discharge Date: Discharge Date: Expected LOS: Initial Reviewer: [email or web address] Initial Review Date: 08/27/2020 Generated: 08/30/20 11:47 am Comments DCP- Discharge Planning Updated by [email or web address]: Hazel Luna on 08/30/20 9:[address] Patient Name: JOSE A QUINTEROS Admission Status: ER Accout number: [id number] Admission Date: 08-27-2020 : 1940 Admission Diagnosis:UNSP FRACTURE OF UPPER END OF LEFT HUMERUS, INIT FOR CL Attending: MANUEL Current LOS: 3 Anticipated DC Date: Planned Disposition: Inpatient Rehab Primary Insurance: MEDICARE A & B Discharge Planning Comments: CM met with patient at bedside after explaining CM role and obtaining verbal consent. CM discussed availability / needs of home health, REHAB and medical equipment. PATIENT STATES WOULD LIKE [facility] FOR THERAPY. REHAB CONSULT PLACED AND SHAY WITH REHAB CONTACTED. AGATHA AND IMM SIGNED. IF CANNOT BE ACCEPTED TO [facility] SHE WILL DC TO HOME AND RESUME [facility]. HAS EQUIPMENT AT HOME. ANTICIPATE DC TO [facility] TODAY. CM TO FOLLOW AND ASSIST. Net Washer: Hazel Luna DCPIA - Discharge Planning Initial Assessment Updated by [email or web address]: Hazel Luna on 08/30/20 10:43 am * Is the patient Alert and Oriented? Yes * Preadmission Environment Home with Family * ADLs Independent * Other Equipment CANE, WALKER, * Community resources currently utilized Home Health * Please name any agencies selected above. [facility] * Additional services required to return to the preadmission environment? Yes * Can the patient safely return to the preadmission environment? Yes * Has this patient been hospitalized within the prior 30 days at any hospital? No Coverage Notice Reviewer: [email or web address] Luna Notice Issued Date-Time: 08/30/2020 10:45 Notice Type: IM Discharge Notice Notice Delivered To: Relationship to Patient: [employer]op[employer] Operator Name: Delivery Method: - Rachel Days: Prior Verbal Notification: Recipient Understood Notice: Yes Recipient Signature: Yes Med Rec Note Co-signed by Attending: Coverage Notice Comment: Reviewer: [email or web address] Adri Luna Notice Issued Date-Time: 08/30/2020 10:45 Notice Type: Patient Choice Letter Notice Delivered To: Relationship to Patient: [employer] Operator Name: Delivery Method: - Rachel Days: Prior Verbal Notification: Recipient Understood Notice: Yes Recipient Signature: Yes Med Rec Note Co-signed by Attending: Coverage Notice Comment: [facility] OR HOME AND RESUME [facility] Patient Name: JOSE A QUINTEROS Page [phone] at 1047 All edits/amendments must be made on the electronic document DICTATION DATE: 08/30/201046 PSYCHIATRIC SECURITY NURSE: THERON 08/30/20 1047 RPT#: [id number] DC DATE: STATUS: ADM IN [facility] [address] [place] [address] END OF REPORT
--- NOTE | 2020-08-30 14:16 | NUR ---
Rehab Note- Acute INpatient Rehab prescreen order received. The patient is a good inpatient acute rehab candidate. Discussed in IDT meeting. WIll accept the patient today. Spoke with JL Oliva. THank you for this referral! Dilma Shahid RN Clinical Liaison, [facility] Rehab
[2020-08-30 17:48] VITALS: BP 159/56
--- NOTE | 2020-08-31 09:11 | MORECARE ---
CASE MANAGEMENT DISCHARGE SUMMARY PATIENT: JOSE A QUINTEROS UNIT: [id number] ADM DATE: 08/27/20 AGE: 80 : 44 SEX: F ROOM/BED: D.2234 AUTHOR: SARABJIT,DOC PHYSICIAN: REFERRING PHYSICIAN: ERWIN BLANTON MD DATE OF SERVICE: 08/31/20 Discharge Plan Patient Name: JOSE A QUINTEROS Facility: [facility]:[place] : 1940 Planned Disposition: Inpatient Rehab Anticipated Discharge Date: Discharge Date: 08/30/2020 Expected LOS: Initial Reviewer: [email or web address] Initial Review Date: 08/27/2020 Generated: 08/31/20 10:10 am Comments DCP- Discharge Planning Updated by [email or web address]: Hazel Luna on 08/30/20 9:[address] Patient Name: JOSE A QUINTEROS Admission Status: ER Accout number: [id number] Admission Date: 08-27-2020 : 1940 Admission Diagnosis:UNSP FRACTURE OF UPPER END OF LEFT HUMERUS, INIT FOR CL Attending: MANUEL Current LOS: 3 Anticipated DC Date: Planned Disposition: Inpatient Rehab Primary Insurance: MEDICARE A & B Discharge Planning Comments: CM met with patient at bedside after explaining CM role and obtaining verbal consent. CM discussed availability / needs of home health, REHAB and medical equipment. PATIENT STATES WOULD LIKE [facility] FOR THERAPY. REHAB CONSULT PLACED AND SHAY WITH REHAB CONTACTED. AGATHA AND IMM SIGNED. IF CANNOT BE ACCEPTED TO [facility] SHE WILL DC TO HOME AND RESUME [facility]. HAS EQUIPMENT AT HOME. ANTICIPATE DC TO [facility] TODAY. CM TO FOLLOW AND ASSIST. Film Or Videotape Editor: Hazel Luna DCPIA - Discharge Planning Initial Assessment Updated by [id number]: Hazel Luna on 08/30/20 10:43 am * Is the patient Alert and Oriented? Yes * Preadmission Environment Home with Family * ADLs Independent * Other Equipment CANE, WALKER, * Community resources currently utilized Home Health * Please name any agencies selected above. [facility] * Additional services required to return to the preadmission environment? Yes * Can the patient safely return to the preadmission environment? Yes * Has this patient been hospitalized within the prior 30 days at any hospital? No Coverage Notice Reviewer: [email or web address] Luna Notice Issued Date-Time: 08/30/2020 10:45 Notice Type: IM Discharge Notice Notice Delivered To: Relationship to Patient: Survey Workers Supervisor Name: Delivery Method: - Rachel Days: Prior Verbal Notification: Recipient Understood Notice: Yes Recipient Signature: Yes Med Rec Note Co-signed by Attending: Coverage Notice Comment: Reviewer: [email or web address] Luna Notice Issued Date-Time: 08/30/2020 10:45 Notice Type: Patient Choice Letter Notice Delivered To: Relationship to Patient: Survey Workers Supervisor Name: Delivery Method: - Rachel Days: Prior Verbal Notification: Recipient Understood Notice: Yes Recipient Signature: Yes Med Rec Note Co-signed by Attending: Coverage Notice Comment: [facility] OR HOME AND RESUME [facility] Last DP export: 08/30/20 9:47 Patient Name: JOSE A QUINTEROS Page [phone] at 0911 All edits/amendments must be made on the electronic document DICTATION DATE: 08/31/20909 ROLL SHEETING CUTTER: THERON 08/31/20909 RPT#: [id number] DC DATE:08/30/20 STATUS: DIS IN [facility] [address] [place] [address] END OF REPORT
== END 2020-08-30 21:06 | DRG 493 ==
LOC: D.ER 09:49 → D.EDHOLD 10:50 → D.MS 10:50
PROVIDERS: Family Medicine; Orthopaedic Surgery; ADMIT Family Medicine; ATTEND Family Medicine
PROC: 0HQCXZZ Repair Left Upper Arm Skin, External Approach (ICD-10-PCS; 2020-08-27)
PROC: 0PSD04Z Reposition Left Humeral Head with Internal Fixation Device, Open Approach (ICD-10-PCS; principal; 2020-08-28 08:00)
DX: S42.202A Unspecified fracture of upper end of left humerus, initial encounter for closed fracture (principal); N18.4 Chronic kidney disease, stage 4 (severe); D62 Acute posthemorrhagic anemia; W07.XXXA Fall from chair, initial encounter; E11.22 Type 2 diabetes mellitus with diabetic chronic kidney disease; S41.112A Laceration without foreign body of left upper arm, initial encounter

== ENCOUNTER 2020-08-30 21:45 | Inpatient (IN) | payer MEDICARE, OTHER ==
[~2020-08-30] VITALS: Ht 157.5 cm; Wt 58.1 kg
--- NOTE | 2020-08-30 20:00 | NUR ---
ADMIT FOR PHYSICAL REHAB AND SERVICES OF DR SEPULVEDA. AWAKE AND ALERT. ORIENTED X 4. RESPIRAITONS UNLABORED. LEFT ARM/SHOULDER DRESSING INTACT AND IN SLING. ASSISTED TO BATHROOM AND BACK TO BED. GAIT STEADY. CALL LIGHT IN REACH. SEE ADMISSION ASSESSMENT.
[~2020-08-30 21:45] MED LIST changes: +CENTRUM SILVER1 EAC3 PO; +FERROUS SULFAT325 MG PO; +HYDROCODON-ACE1 EA10 PO; +PROTONIX40 MG PO
[2020-08-30 23:25] VITALS: BP 152/59; BMI 23.4
--- NOTE | 2020-08-31 02:37 | NUR ---
ASSISTED TO BATHROOM AND BACK TO BED. NO DISTRESS NOTED.
--- NOTE | 2020-08-31 06:24 | NUR ---
QUIET HOURS. RESTED WELL. LEFT ARM REMAINS IN SLING. BLOOD SUGAR CHECKED WITH RESULTS 103. NO DISTRESS NOTED.
[2020-08-31 07:43] LABS: BASOPHILS 0.3 % (0-2); EOSINOPHILS 6.2 % (0-7); HEMATOCRIT 31.4 % (36.0-48.0); HEMOGLOBIN 10.2 g/dL (12-16); IMMATURE GRANULOCYTES 0.1 % (0-5); LYMPHOCYTES 33.2 % (15-50); MCH 29.7 pg (26.0-34.0); MCHC 32.5 g/dL (31.0-37.0); MCV 91.3 fL (80.0-100.0); MEAN PLATELET VOLUME 10.2 fL (7.4-10.4); MONOCYTES 6.2 % (2-11); PLATELET COUNT 324 10x3/uL (130-400); RBC 3.44 10x6/uL (4.00-5.40); RDW 14.2 % (11.5-14.5); WBC 7.4 10x3/uL (4.8-10.8)
[2020-08-31 07:49] LABS: ANION GAP 12.4 mmol/L (8-16); CALCIUM 9.2 mg/dL (8.5-10.1); CARBON DIOXIDE 25.8 mmol/L (21.0-32.0); CREATININE - SERUM 1.8 mg/dL (0.6-1.3); POTASSIUM - SERUM 4.2 mmol/L (3.5-5.1)
[2020-08-31 07:53] VITALS: BP 124/99
--- NOTE | 2020-08-31 08:00 | NUR ---
SHIFT ASSMT COMPLETED.
[2020-08-31 13:16] VITALS: Ht 157.5 cm; Wt 58.1 kg
--- NOTE | 2020-08-31 14:36 | NUR ---
PATIENT ADMITTED TO [facility] FROM ACUTE FLOOR. HER PCP IS DR. RIOS. DME AT HOME IS A CANE AND WALKER. AT DISCHARGE SHE WOULD LIKE [facility]. WILL CONTINUE TO FOLLOW WITH PATIENT AND WILL ASSIST WITH NEEDS.
--- NOTE | 2020-08-31 20:18 | NUR ---
AWAKE AND ALERT. RESTING IN BED WITH RESPIRAITONS UNLABORED. LEFT ARM/SHOULDER SLING IN PLACE AND DRESSING DRY AND INTACT. PATIENT STATES SHE "HAD A GOOD CRY TODAY" OVER HER DECLINING HEALTH ISSUES AND LOSS OF INDEPENDENCE. BUT SHE STATES SHE FEELS BETTER NOW. N0 ACUTE DISTRESS NOTED. CALL LIGHT IN REACH.
[2020-08-31 20:54] VITALS: BP 159/40
--- NOTE | 2020-09-01 02:19 | NUR ---
ASSISTED TO BATHROOM AND BACK TO BED. NO DISTRESS NOTED.
--- NOTE | 2020-09-01 06:03 | NUR ---
QUIET HOURS. NO ACUTE CHANGES IN CONDITION THIS SHIFT. SLING IN PLACE TO LEFT ARM. NO DISTRESS NOTED.
[2020-09-01 08:11] VITALS: BP 147/52
--- NOTE | 2020-09-01 14:03 | NUR ---
Nutrition Follow-up: Diet: Diabetic PO intake: ~75% x last 3 meals; reports good appetite Last BM: 08/31/20. Wt: 128# (08/31/20) Meds noted: januvia, ferrous sulfa. BUN 26(H), Cr 1.8(H), GFR 29(L), POC Glu 150(H) Recommend continue current diet. RD following.
--- NOTE | 2020-09-01 18:07 | NUR ---
JUST FINISHED SUPPER. LUE OUT OF SLING IN BED. DRY DSG STILL IN PLACE TO LUE AND LEFT ANTERIOR SHOULDER. HAS BEEN UP WALKING AROUND WITH THERAPY TODAY. DENIES INCREASED PAIN. CALL LIGHT IN REACH, BED IN LOWEST POSITION, SIDE RAILS UP X2.
--- NOTE | 2020-09-01 19:41 | NUR ---
AWAKE AND ALERT. IN WHEELCHAIR ROLLING AROUND STATING "I AM JUST BORED WITH SITTING IN THIS ROOM". LEFT ARM SLING IN PLACE. RESPIRATIONS UNLABORED. NO DISTRESS NOTED.
[2020-09-01 21:24] VITALS: BP 146/68
--- NOTE | 2020-09-02 01:57 | NUR ---
RESTING QUIETLY WITH RESPIRATIONS UNLABORED. NO DISTESS NOTED. CALL LIGHT IN REACH.
[2020-09-02 08:00] VITALS: BP 124/70
[2020-09-02 08:41] LABS: ANION GAP 15.2 mmol/L (8-16); CALCIUM 9.1 mg/dL (8.5-10.1); CARBON DIOXIDE 24.8 mmol/L (21.0-32.0); CREATININE - SERUM 1.7 mg/dL (0.6-1.3)
[2020-09-02 10:00] LABS: BASOPHILS 0.4 % (0-2); EOSINOPHILS 7.2 % (0-7); HEMOGLOBIN 9.3 g/dL (12-16); IMMATURE GRANULOCYTES 0.1 % (0-5); LYMPHOCYTES 29.1 % (15-50); MCH 29.2 pg (26.0-34.0); MCHC 32.1 g/dL (31.0-37.0); MCV 90.9 fL (80.0-100.0); MEAN PLATELET VOLUME 10.1 fL (7.4-10.4); MONOCYTES 7.1 % (2-11); NEUTROPHILS 56.1 % (40-80); PLATELET COUNT 361 10x3/uL (130-400); RBC 3.19 10x6/uL (4.00-5.40); RDW 14.1 % (11.5-14.5); WBC 7.2 10x3/uL (4.8-10.8)
--- NOTE | 2020-09-02 13:24 | NUR ---
WALKING [place] WITH THERAPY. LUE STILL IN SLING. DENIES INCREASED PAIN.
--- NOTE | 2020-09-02 18:55 | NUR ---
RECEIVED PT UP IN RESTROOM. PT DENIES ANY NEEDS OR PAIN. LUE SLING IN PLACE. INSTRUCTED TO USE CALL LIGHT IF ASSISTANCE IS NEEDED. BED/CHAIR ALARM WAIVER IN CHART. NO ACUTE DISTRESS NOTED. CPOC
[2020-09-02 20:03] VITALS: BP 118/58
--- NOTE | 2020-09-02 21:20 | NUR ---
PT LYING IN BED EYES CLOSED RESTING. EASILY AROUSED WITH STIMULI. HS MEDS ADMININSTERED. DENTURES PLACED IN DENTURE CUP FOR CLEANING. SHIFT ASSESSMENT COMPLETE. NO ACUTE DISTRESS NOTED. CALL LIGHT WITHIN REACH. CPOC
--- NOTE | 2020-09-03 02:21 | NUR ---
PT LYING IN BED EYES CLOSED RESTING. RR EVEN AND UNLABORED. NO ACUTE DISTRESS NOTED. CALL LIGHT WITHIN REACH.
--- NOTE | 2020-09-03 08:00 | NUR ---
SHIFT ASSMT COMPLETED.
[2020-09-03 08:15] VITALS: BP 138/50
--- NOTE | 2020-09-03 16:00 | NUR ---
UP IN CHAIR.DENIES NEEDS.
--- NOTE | 2020-09-03 17:15 | NUR ---
SON HER WITH TRULICITY PEN.DOSE TAKEN AND WILL RETURN PEN HOME.
[2020-09-03 19:00] VITALS: BP 141/45
--- NOTE | 2020-09-03 19:00 | NUR ---
RECEIVED PT SITTING UP IN W/C. ALERT AND ORIENTED X4. DENIES ANY NEEDS. MILD DISCOMFORT IN LEFT ARM REQUESTS PAIN MEDS WITH HS MEDS. LEFT ARM SLING IN USE. NO ACUTE DISTRESS NOTED. VS STABLE. SHIFT ASSESSMENT COMPLETE. CALL LIGHT AND WATER WITHIN REACH. FALL PRECAUTIONS IN PLACE. CPOC
--- NOTE | 2020-09-03 23:37 | NUR ---
PT LYING IN BED ON LEFT SIDE EYES CLOSED RESTING. RR EVEN AND UNLABORED. CALL LIGHT WITHIN REACH
--- NOTE | 2020-09-04 02:05 | NUR ---
PT LYING IN BED ON RIGHT SIDE EYES CLOSED RESTING. RR EVEN AND UNLABORED. NO DISTRESS NOTED. CALL LIGHT WITHIN REACH.
--- NOTE | 2020-09-04 05:18 | NUR ---
FSBS 106. PT C/0 LEFT SHOULDER AND ARM THROBBING RADIATING PAIN. ADMININSTERED NORCO 10/325MG PER PT REQUEST. NO OTHER NEEDS VOICED. NO ACUTE CHANGE IN CONDITION NOTED THIS SHIFT. CALL LIGHT WITHIN REACH.
--- NOTE | 2020-09-04 08:00 | NUR ---
SHIFT ASSMT COMPLETED.SHIFT ASSMT.
[2020-09-04 08:08] VITALS: BP 160/62
--- NOTE | 2020-09-04 12:00 | NUR ---
EATING LUNCH SITTING UP IN WC.
[2020-09-04 19:10] VITALS: BP 134/56
--- NOTE | 2020-09-04 19:10 | NUR ---
RECEIVED PT SITTING UP IN W/C IN ROOM VISITING WITH ANOTHER PT. ALERT AND ORIENTED X4. DENIES ANY NEEDS. C/O MILD RIGHT ARM DISCOMFORT. RIGHT ARM IN SLING, DRESSING INTACT. BRUISING NOTED. NO ACUTE DISTRESS NOTED. VS STABLE. SHIFT ASSESSMENT COMPLETE. CALL LIGHT WITHIN REACH. BED WAIVER SIGNED. CPOC
--- NOTE | 2020-09-05 00:47 | NUR ---
PT LYING IN BED ON RIGHT SIDE EYES CLOSED RESTING. RR EVEN AND UNLABORED. CALL LIGHT WITHIN REACH. FALL PRECAUTIONS IN PLACE. WILL CONTINUE TO MONITOR
--- NOTE | 2020-09-05 05:00 | NUR ---
I have reviewed this patient and I concur with the Shift Assessment completed by the Licensed Practical Nurse today this shift.
--- NOTE | 2020-09-05 06:20 | NUR ---
REMOVED DRESSING FROM LEFT SHOULDER, ELBOW, AND FOREARM. SCANT AMOUNT OF SEROUS DRAINAGE ON OLD ELBOW DRESSING. SHOULDER INCISION JOCELINE INTACT. NO REDNESS OR SWELLING. LEFT ELBOW SUTURES INTACT. SEROUS DRAINAGE NOTED SCANT AMOUNT. LEFT FOREARM HEALING ABRAISION AND SKIN TEAR. NO DRAINAGE NOTED. ALL INCISIONS CLEANSED WITH NORMAL SALINE, PAT DRY WITH 4X4, BORDER GAUZE DRESSING TO SHOULDER AND ELBOW. MEPILEX TO FOREARM. TIME, DATE, INITIALED. PT TOLERATED WELL
[2020-09-05 07:41] VITALS: BP 147/54
[2020-09-05 08:49] LABS: BASOPHILS 0.3 % (0-2); HEMATOCRIT 31.4 % (36.0-48.0); IMMATURE GRANULOCYTES 0.3 % (0-5); LYMPHOCYTES 32.7 % (15-50); MCH 29.2 pg (26.0-34.0); MCHC 31.8 g/dL (31.0-37.0); MCV 91.5 fL (80.0-100.0); NEUTROPHILS 54.7 % (40-80); RBC 3.43 10x6/uL (4.00-5.40); RDW 14.7 % (11.5-14.5); WBC 7.8 10x3/uL (4.8-10.8)
[2020-09-05 09:03] LABS: ANION GAP 15.9 mmol/L (8-16); CALCIUM 9.3 mg/dL (8.5-10.1); CARBON DIOXIDE 23.9 mmol/L (21.0-32.0); CREATININE - SERUM 1.7 mg/dL (0.6-1.3); POTASSIUM - SERUM 4.8 mmol/L (3.5-5.1)
[2020-09-05 09:12] LABS: PLATELET COUNT 469 10x3/uL (130-400)
[2020-09-05] MEDS ORDERED: HYDROCODON-ACE1 EA10 PO (09:28)
--- NOTE | 2020-09-05 09:29 | RHP ---
PATIENT: JOSE A QUINTEROS MEDICAL RECORD: [id number] ACCOUNT: [id number] LOCATION:[facility] : [birth year] ADMISSION DATE: 08/30/20 REHABILITATION HISTORY AND PHYSICAL EXAMINATION POST ADMISSION PHYSICIAN EXAMINATION ADMITTING DIAGNOSES: Muscular wasting and disuse atrophy, following a fall that resulted in a left humeral fracture. HISTORY OF PRESENT ILLNESS: The patient is a 80-year-old female patient who presents with left shoulder, elbow and left temporal pain with a noted laceration to the left elbow. She states she had a fall at home with a folding chair. The patient had a left humeral fracture. Orthopedic consult was done. She had an ORIF of her left proximal humerus. She does have stage IV chronic kidney disease. She has been receiving PT and progressing well during her acute stay. She is currently being monitored for pain control. Surgical wound healing. She is on IV Ferrlecit secondary to low iron. She has completed IV antibiotics. She has been monitored for I's and O's and also for recent UTI. She does need anticoagulation therapy during her stay. She has got proximal muscle weakness, fatigue, shortness of breath, debility, deconditioning, impaired mobility, gait disturbance, fall risk and self-care deficits. These are all barriers to her discharge home. She was living with her son and family, was completely independent with ADLs and mobility prior to this. She is currently set-up for max assist for ADLs, mod assist for mobility with nonweightbearing to her left upper extremity in sling arm. She plans to discharge home hopefully at her prior level of functioning. COMORBIDITIES: In this patient include proximal humeral surgical neck fracture, acute blood loss anemia, status post ORIF of her left shoulder, fall, acute pain, chronic kidney disease, diabetes, hyperglycemia, left humeral fracture. PAST MEDICAL HISTORY: Significant for history of a retinal tear, diabetes, breast cancer. She has had tobacco use, renal failure. PAST SURGICAL HISTORY: Includes hysterectomy, bilateral mastectomy, bilateral breast implants, pilonidal cyst, cystectomy, bilateral knee replacements, bladder suspension, and tonsillectomy. ALLERGIES: HONEY BEE VENOM, SULFA, CODEINE. CURRENT MEDICATIONS: Include she is on vitamin D 1000 units weekly, she is on multivitamin daily, TriCor 145 mg daily, Januvia 50 mg daily, Paxil 40 mg daily, ferrous sulfate 325 daily, Colace 100 mg b.i.d., [place] 10/325 one tab every 4 hours p.r.n., Synthroid 50 mcg daily, Protonix 40 mg daily. HABITS: Does have a history of tobacco use. FAMILY HISTORY: Noncontributory. SOCIAL HISTORY: The patient hopes to return back home and get back to her prior level of functioning with her family. REVIEW OF SYSTEMS: GENERAL: Does complain of weakness. PSYCHIATRIC: Denies cold, cough, or congestion. HISTORY AND PHYSICAL [id number] JOSE A QUINTEROS CARDIOVASCULAR: Denies any chest pain. PHYSICAL EXAMINATION: VITAL SIGNS: Stable, afebrile. GENERAL: An elderly thin female in no distress upon exam. HEENT: Normocephalic and atraumatic. Mucosa moist. NECK: Supple. No lymphadenopathy. LUNGS: Clear in upper diana. No wheezing or rales. HEART: Regular rate and rhythm. She does have a holosystolic murmur. ABDOMEN: Soft, benign, and nondistended. Positive bowel sounds times 4. EXTREMITIES: Does have a sling in previous surgical area noted that appears well at this time. NEUROLOGIC: She does have some weakness. LABORATORY DATA: Her white count is 7.4, H&H 10 and 31 and platelet count was noted to be 324. Sodium 142, potassium 4.2, BUN and creatinine of 26 and 1.8, blood sugar is noted to be 94. ASSESSMENT: This is a 80-year-old female who has debility secondary to recent humeral fracture. The patient has potential to make improvement. We instituted the following multidisciplinary therapies, include not limited to physical, occupational, respiratory, speech, nutritional services, prosthetics and orthotics. Given her complex medical condition and risks for more complications, rehabilitation services cannot be provided at a low level of care such as penitentiary facility. PLAN: 1. Admit to [facility] inpatient therapy to include the following disciplines: A. Physical therapy to improve gait, all transfer skills and bed mobility to a modified independent level. B. Occupational therapy to improve activities of daily living. C. Case management to help with discharge planning and placement options. D. Nutrition to assist with nutritional needs. E. Rehabilitation nursing to assist in monitoring the patient's underlying medications and to assist with any type of bowel or bladder management. 2. The patient's current medication and medical care will be continued. 3. Placed on standard fall precautions. 4. The patient's estimated length of stay is approximately 7-10 days. 5. We will discuss this patient during care team staff meeting this week. We will continue on medications where appropriate. If she is getting around well, I do not see any need for anticoagulation at this time. We will see how she does. I will discuss at noon today with care team and see in the a.m. TRANSINT:[id number] Voice Confirmation ID: [id number] DOCUMENT ID: [id number] JOSEPH notes whether there has been none or any medical/functional change since admission: - No change since preadmission screen. JOSEPH attests patient continues to be appropriate for IRF: - Continues to be appropriate. HISTORY AND PHYSICAL [id number] JOSE A QUINTEROS,HELEN SAMANIEGO MD at 0929 CC: [id number] DICTATION DATE: 08/31/20 0839 DIRECTOR OF BILLING: 08/31/20 1044 ADM IN [place] [id number] [place] [id number]
--- NOTE | 2020-09-05 10:48 | NUR ---
SITTING UP IN BED WATCHING TV. HAS BEEN UP WORKING WITH THERAPY. LUE STILL IN SLING. BED IN LOWEST POSITION, CALL LIGHT IN REACH, SIDE RAILS UP X2
--- NOTE | 2020-09-05 18:50 | NUR ---
BEDSIDE REPORT COMPLETE. RECEIVED PT SITTING UP ON SIDE OF BED. NO ACUTE DISTRESS NOTED. A/O X4. DENIES ANY NEEDS. NO C/O PAIN. CALL LIGHT WITHIN REACH. FALL PRECAUTIONS IN PLACE. CPOC
[2020-09-05 21:19] VITALS: BP 130/54
--- NOTE | 2020-09-06 00:30 | NUR ---
PT LYING IN BED ON RIGHT SIDE EYES CLOSED RESTING. RR EVEN AND UNLABORED. CALL LIGHT WITHIN REACH
[2020-09-06 07:43] VITALS: BP 136/54
--- NOTE | 2020-09-06 09:15 | NUR ---
PATIENT DISCHARGING HOME TODAY WITH FAMILY. [facility] WILL PROVIDE THERAPY AT HOME. NO NEW DME NEEDED AT THIS TIME.AGATHA SINGED, IMM SERVED AND EXPLAINED, ONE GIVEN TO PATIENT AND ONE FILED IN CHART.DR. RIOS 09/07/20 @ 11:00, DR. LEWIS 09/13/20 @ 2:00. NO COMPARE DATA REVIEWED PER PATIENT REQUEST. DC INSTRUCTIONS FAXED TO PCP, HOME HEALTH AND REVIEWED WITH PATIENT PER PRIMARY NURSE.
--- NOTE | 2020-09-06 12:30 | NUR ---
DC HOME WITH SON. DECLINED TO HAVE ANY MEDS CALLED IN. REVIEWED MEDS, DC PLAN AND HOME HEALTH AGENCY. LUE IN SLING. LEFT FLOOR AMBULATORY AT HER REQUEST.
== END 2020-09-06 12:00 | disposition home health service (06) | DRG 558 ==
LOC: D.REHAB 21:45
PROVIDERS: ADMIT Emergency Medicine; ATTEND Emergency Medicine
DX: M62.50 Muscle wasting and atrophy, not elsewhere classified, unspecified site (principal); W08.XXXD Fall from other furniture, subsequent encounter; S42.212D Unspecified displaced fracture of surgical neck of left humerus, subsequent encounter for fracture with routine healing; R53.81 Other malaise; D64.9 Anemia, unspecified; E11.22 Type 2 diabetes mellitus with diabetic chronic kidney disease; N18.9 Chronic kidney disease, unspecified; E11.65 Type 2 diabetes mellitus with hyperglycemia